=== PATIENT | female | born 1935 | race Caucasian/White ===

== ENCOUNTER 2019-08-07 05:35 | Inpatient (IN) | payer OTHER ==
[2019-08-07] MEDS ORDERED: D50W 25 GM/50 ML SYRINGE/VIAL IV ONE (05:40)
[2019-08-07 06:23] LABS: Absolute Lymphocytes (CBC) 1.1 K/uL (0.7-4.9); Basophils % 0.9 % (0-1.3); Hematocrit 25.5 % (36.0-45.0); Lymphocytes % 13.4 % (15.3-44.8); MPV 8.3 fL (7.6-11.3); RBC Red Blood Cell Count 3.55 M/uL (3.86-4.86)
[2019-08-07 06:33] LABS: Protime INR 1.27
[2019-08-07 06:42] LABS: Potassium 4.3 mmol/L (3.5-5.1)
[2019-08-07] MEDS ORDERED: RSI MEDICATION KIT IV ONE (06:48)
[2019-08-07 06:59] LABS: Albumin 3.2 g/dL (3.4-5.0); Bilirubin Direct 0.2 mg/dL (0-0.2); Bilirubin Total 0.4 mg/dL (0.2-1.0); Magnesium 2.7 mg/dL (1.8-2.4); Protein, Total 8.1 g/dL (6.4-8.2)
[2019-08-07] MEDS ORDERED: PROPOFOL 1,000 MG/100 ML VIAL IV ONE (07:08)
[2019-08-07] MEDS ORDERED: MIDAZOLAM HCL 2 MG/2 ML INJ ONE (07:08)
[2019-08-07 07:12] LABS: Troponin (Emerg Dept Use Only) 0.71 ng/mL (0.0-0.045)
[2019-08-07] MEDS ORDERED: D5 0.9 NS 1,000 ML IV ONE (07:13)
[2019-08-07 07:58] LABS: Blood Gas Oxyhemoglobin 97.6 % (94-97)
[2019-08-07 08:06] LABS: Urine Blood NEGATIVE (NEG); Urine Glucose NEGATIVE (NEG); Urine Protein NEGATIVE (NEG)
[2019-08-07] MEDS ORDERED: ETOMIDATE 20 MG/10 ML VIAL IV ONE (08:18)
[2019-08-07 08:20] LABS: Anisocytosis 2+; Blood Morphology Comment NOTED (NOT SEEN); Hypochromasia 2+; Platelet Estimate ADEQ; Teardrop Cell 1+; Urine White Blood Cell Casts OK
[2019-08-07 08:21] LABS: Elliptocytes 2+
--- NOTE | 2019-08-07 08:21 | ER ---
Nurse's Notes [facility] Name: Rufina Powers Age: 84 yrs Sex: Female : 1935 Arrival Date: 08/07/2019 Time: 05:50 Bed 4 Private MD: Diagnosis: Altered mental status, unspecified;Dehydration;Hypoglycemia, unspecified;Hypothermia Presentation: 08/07 05:35 Presenting complaint: EMS states: PT was found lethargic and the blood sugar was in the jb4 30's. Pt was given oral Glucose at the [facility]. We checked the blood sugar and it was in the 60's. We gave dextrose. 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 05:35 Transition of care: patient was not received from another setting of care. Onset of jb4 symptoms was August 07, 2019. Risk Assessment: Do you want to hurt yourself or someone else? Unable to obtain. Initial Sepsis Screen: Does the patient meet any 2 criteria? Temp <36.0*C (96.8*F)) or > 38.3*C (100.9*F). Altered Mental Status. HR > 90 bpm. Yes Does the patient have a suspected source of infection? No. Patient's initial sepsis screen is negative. If YES to both, name of provider notified: Gareth Quintana MD Care prior to arrival: Medication(s) given: Glucagon. 05:35 Method Of Arrival: EMS: [facility] jb4 05:35 Acuity: DAVIDA 1 jb4 Historical: - Allergies: 06:27 No Known Allergies; jb4 - Home Meds: 07:31 levothyroxine 125 mcg tab 1 tab once daily [Active]; lovastatin 20 mg Oral tab 1 tab iw once daily [Active]; lovastatin 40 mg Oral tab 1 tab nightly [Active]; acetaminophen 325 mg Oral tab every 8 hours [Active]; metformin 500 mg Oral tab 1 tab 2 times per day [Active]; Miralax 17 gram/dose Oral powd once daily [Active]; potassium chloride 20 mEq/15 mL Oral liqd 15 mL once daily [Active]; Protonix 20 mg Oral TbEC 2 times per day [Active]; Xarelto 20 mg oral tab 1 tab once daily [Active]; Zofran (as hydrochloride) 4 mg Oral tab 3 times per day [Active]; Aldactone 25 mg Oral tab 1 tab once daily [Active]; Bumex Oral 1 mg daily [Active]; calcium carbonate 600/400 mg-unit Oral tab twice a day [Active]; digoxin 125 mcg Oral tab 1 tab once daily [Active]; ferrous sulfate 325 mg (65 mg iron) Oral TbEC twice a day [Active]; guaifenesin Oral 20 mL every 4 hours [Active]; Humalog 100 unit/mL Sub-Q soln twice a day [Active]; Imodium A-D 2 mg oral tab as needed [Active]; Lantus 100 unit/mL Sub-Q soln 40 unit daily [Active]; - PMHx: 06:27 Obesity; CHF; cardiac arrhythmias; Hypothyroidism; Diabetes - IDDM; muscle wasting and jb4 atrophy; Atrial Fib; Depression; Hypertension; Dementia; 07:36 Hyperlipidemia; hypokalemia; osteoarthritis; CAD; dysphagia; iw - Immunization history:: Adult Immunizations unknown. - Social history:: Smoking status: unknown. - Ebola Screening: : No symptoms or risks identified at this time. Screenin:45 Abuse screen: Denies threats or abuse. Nutritional screening: No deficits noted. jb4 Tuberculosis screening: No symptoms or risk factors identified. Fall Risk Total [place] Fall Scale indicates No Risk (0-24 pts). 06:00 The patient is not alert, or is unable to follow commands. Bedside swallow screening jb4 discontinued. Patient kept NPO until cleared by Speech Therapy or Physician. The patient failed the bedside swallow screening. The patient will be kept NPO until cleared by Speech Therapy or Physician. Provider notified of bedside swallow screening results: Gareth Quintana MD. Assessment: 05:45 General: Appears distressed, ill, obese, Behavior is unresponsive. Pain: Unable to use jb4 pain scale. Patient is unresponsive. Neuro: Level of Consciousness is unresponsive. Cardiovascular: Skin is cool and pale.. Rhythm is atrial fibrillation. Respiratory: Airway is compromised Respiratory effort is shallow, Respiratory pattern is snoring. GI: No deficits noted. No signs and/or symptoms were reported involving the gastrointestinal system. : No deficits noted. No signs and/or symptoms were reported regarding the genitourinary system. EENT: No deficits noted. No signs and/or symptoms were reported regarding the EENT system. Derm: Skin has lesions on noted to ANASTASIYA arms and legs Skin is dry, Skin is pale, Skin temperature is cool. 06:56 Reassessment: PT intubated with ET tube 23 at the lip. Positive color change on the CO2 jb4 detector. PT sating 100% on ET tube with bagged respirations. 07:10 Reassessment: experimental technician reports inability to obtain 2nd set of blood cultures after aa5 several missed attempts. . 07:10 General: Behavior is intubated and sedated . Pain: Unable to use pain scale. Patient is aa5 intubated. Neuro: Level of Consciousness is intubated and sedated. Unable to follow commands. . left pupil is irregular and sluggishly reactive to light. Right pupil is round and sluggishly reactive to light. . Cardiovascular: Heart tones S1 S2 present Edema 3+ pitting edema noted to bilateral lower extremities. Rhythm is atrial fibrillation. Respiratory: Airway via oral intubation Respiratory effort is even, assisted Respiratory pattern is symmetrical, Breath sounds are coarse bilaterally. GI: Abdomen is obese, Bowel sounds present X 4 quads. Abd is soft X 4 quads. : brief noted. EENT: redness noted to lower eyelids . Derm: Skin is pink, warm \T\ dry. 07:10 Reassessment: Davida hugger warming blanket ongoing. . aa5 07:14 Reassessment: Pt noted to be griping bed rail with left hand and mild movement to left aa5 arm noted, MD was notified. Cough reflex noted upon deep suctioning by RT at this time. . 07:30 : Romano in place to gravity drainage. aa5 08:00 Reassessment: Pt cleaned, soft brown stool noted. Brief applied and clean gown applied aa5 at this time. Davida hugger (warming measure) reapplied. . 08:00 Neuro: Level of Consciousness is Pt is intubated and sedated. . Respiratory: Airway via aa5 oral intubation Respirations are assisted. 08:00 Derm: Skin is pink, warm \T\ dry. aa5 09:00 Neuro: Level of Consciousness is intubated and sedated. . Respiratory: Airway via oral aa5 intubation Respirations are assisted. Derm: Skin is pink, warm \T\ dry. 09:00 Cardiovascular: Rhythm is atrial fibrillation. aa5 09:03 Reassessment: Spoke with Meagan (nurse at [facility]), Meagan states pt's son orion has been notified that patient was sent to this hospital. . 09:57 Reassessment: Pt's son at bedside. Awaiting to speak to Dr. Galindo . aa5 10:00 Neuro: Level of Consciousness is intubated and sedated. . Cardiovascular: Rhythm is aa5 atrial fibrillation. Respiratory: Airway via oral intubation Assisted respirations. Derm: Skin is pink, warm \T\ dry. 10:00 Reassessment: Davida hugger blanket remains in place. . aa5 10:03 Reassessment: Dr. Galindo at bedside speaking to pt's son about POC at this time. . aa5 10:10 Reassessment: Pt noted to be moving arms and legs at this time. Unable to follow aa5 commands. Propofol bolus administered. . 10:13 Reassessment: Pt sedated at this time. . aa5 11:00 Reassessment: Pt noted to be opening eyes and mild movement noted to feet, propofol aa5 bolus administered. . 11:03 Reassessment: Pt sedated at this time. . aa5 11:03 Respiratory: Airway via oral intubation Assisted respirations. aa5 11:03 Derm: Skin is pink, warm \T\ dry. aa5 11:40 Reassessment: Report given to CHADWICK Freeman (ICU). aa5 11:50 Reassessment: Repeat lactate drawn and sent to lab. aa5 11:50 Reassessment: Davida hugger blanket remains in place. . Neuro: Level of Consciousness is aa5 sedated . Cardiovascular: Rhythm is atrial fibrillation. Respiratory: Airway via oral intubation Assisted ventilations. Derm: Skin is pink, warm \T\ dry. 12:00 Reassessment: Upper dentures given to Lydia Rajput RN (ICU). aa5 Vital Signs: 05:47 BP 116 / 53; Pulse 105; Resp 20; Temp 92.1(R); Pulse Ox 97% on 2 lpm NC; Weight 113.4 jb4 kg; Height 5 ft. 8 in. (172.72 cm) (R); 07:11 BP 101 / 59; Pulse 99; Resp 18 A; Pulse Ox 100% on ETT vent; aa5 07:15 BP 125 / 87; Pulse 92; Resp 18 A; Pulse Ox 100% on ETT vent; aa5 07:20 BP 128 / 91; Pulse 92; Resp 16 A; Pulse Ox 100% on ETT vent; aa5 07:30 BP 123 / 75; Pulse 88; Resp 16 A; Pulse Ox 100% on ETT vent; aa5 07:38 BP 95 / 58; Pulse 114; Temp 93.1(C); Pulse Ox 98% on ETT vent; aa5 07:45 BP 95 / 62; Pulse 97; Resp 16 A; Temp 93.7(C); Pulse Ox 100% on ETT vent; aa5 07:50 BP 107 / 95; Pulse 75; Resp 14 A; Temp 93.9(C); Pulse Ox 100% on ETT vent; aa5 07:55 BP 91 / 63; Pulse 71; Resp 14 A; Temp 94.4(C); Pulse Ox 100% on ETT vent; aa5 08:00 BP 97 / 53; Pulse 70; Resp 14 A; Pulse Ox 100% on ETT vent; aa5 08:10 BP 99 / 65; Pulse 80; Resp 16 A; Temp 94.5(C); Pulse Ox 100% on ETT vent; aa5 08:15 BP 85 / 52; Pulse 74; Resp 16 A; Pulse Ox 100% on ETT vent; aa5 08:20 BP 87 / 49; Pulse 73; Resp 16 A; Temp 94.5(C); Pulse Ox 100% on ETT vent; aa5 08:25 BP 88 / 53; Pulse 68; Resp 16 A; Pulse Ox 100% on ETT vent; aa5 08:30 BP 88 / 57; Pulse 73; Resp 14 A; Temp 94.5(C); Pulse Ox 100% on ETT vent; aa5 08:35 BP 99 / 82; Pulse 72; Resp 14 A; Pulse Ox 100% on ETT vent; aa5 08:40 BP 90 / 58; Pulse 70; Resp 14 A; Temp 94.3(C); Pulse Ox 100% on ETT vent; aa5 08:45 BP 110 / 86; Pulse 69; Resp 14 A; Pulse Ox 100% on ETT vent; aa5 08:50 BP 93 / 48; Pulse 75; Resp 14 A; Temp 94.2(C); Pulse Ox 100% on ETT vent; aa5 08:55 BP 80 / 51; Pulse 71; Resp 14 A; Pulse Ox 100% on ETT vent; aa5 09:00 BP 84 / 42; Pulse 71; Resp 14 A; Temp 94.2(C); Pulse Ox 100% on ETT vent; aa5 09:05 BP 76 / 52; Pulse 71; Resp 14 A; Pulse Ox 100% on ETT vent; aa5 09:10 BP 91 / 56; Pulse 71; Resp 14 A; Temp 94.1(C); Pulse Ox 100% on ETT vent; aa5 09:15 BP 83 / 46; Pulse 70; Resp 14 A; Pulse Ox 100% on ETT vent; aa5 09:15 aa5 09:20 BP 87 / 51; Pulse 71; Resp 14 A; Temp 94.1(C); Pulse Ox 100% on ETT vent; aa5 09:23 BP 102 / 60; Pulse 79; Resp 12 A; Pulse Ox 100% on ETT vent; aa5 09:25 BP 95 / 63; Pulse 78; Resp 12 A; Pulse Ox 100% on ETT vent; aa5 09:30 BP 92 / 75; Pulse 74; Resp 12 A; Temp 94.1(C); Pulse Ox 100% on ETT vent; aa5 09:30 aa5 09:35 BP 105 / 62; Pulse 71; Resp 12 A; Pulse Ox 100% on ETT vent; aa5 09:40 BP 96 / 49; Pulse 78; Resp 12 A; Temp 94.3(C); Pulse Ox 100% on ETT vent; aa5 09:50 BP 91 / 66; Pulse 73; Resp 14 A; Pulse Ox 100% on ETT vent; aa5 10:00 aa5 10:00 BP 98 / 72; Pulse 76; Resp 16 A; Temp 94.8(C); Pulse Ox 100% on ETT vent; aa5 10:10 BP 110 / 65; Pulse 92; Resp 16 A; Pulse Ox 100% on ETT vent; aa5 10:15 BP 109 / 64; Pulse 74; Resp 14 A; Temp 94.9(C); Pulse Ox 100% on ETT vent; aa5 10:25 BP 107 / 53; Pulse 82; Resp 14 A; Temp 95.2(C); Pulse Ox 100% on ETT vent; aa5 10:35 BP 106 / 56; Pulse 79; Resp 14 A; Temp 95.4(C); Pulse Ox 100% on ETT vent; aa5 10:45 BP 95 / 59; Pulse 84; Resp 14 A; Temp 95.8(C); Pulse Ox 100% on ETT vent; aa5 11:00 BP 106 / 64; Pulse 81; Resp 14 A; Temp 95.8(C); Pulse Ox 100% on ETT vent; aa5 11:10 BP 103 / 59; Pulse 80; Resp 14 A; Temp 96.0(C); Pulse Ox 100% on ETT vent; aa5 11:20 BP 96 / 51; Pulse 78; Resp 16 A; Temp 96.2(C); Pulse Ox 100% on ETT vent; aa5 11:30 BP 98 / 50; Pulse 82; Resp 16 A; Temp 96.5(C); Pulse Ox 100% on ETT vent; aa5 11:40 BP 98 / 53; Pulse 78; Resp 16 A; Temp 96.5(C); Pulse Ox 100% on ETT vent; aa5 11:50 BP 95 / 52; Pulse 79; Resp 16 A; Temp 96.5(C); Pulse Ox 100% on ETT vent; aa5 12:00 BP 98 / 50; Pulse 82; Resp 16 A; Pulse Ox 100% on ETT vent; aa5 05:47 Body Mass Index 38.01 (113.40 kg, 172.72 cm) jb4 09:15 Dr. Galindo was notified of decreased BP and MAP of 60-61 aa5 09:30 MAP maintaining >65 aa5 10:00 MAP maintaining > 65 aa5 Erika Coma Score: 06:59 Eye Response: none(1). Verbal Response: none(1). Motor Response: none(1). Total: 3. tw4 ED Course: 05:45 Patient has correct armband on for positive identification. Placed in gown. Bed in low jb4 position. Call light in reach. Side rails up X2. monitoring tech on. Pulse ox on. NIBP on. 05:47 Arm band placed on right wrist. jb4 05:50 Patient arrived in ED. jb4 05:53 Triage completed. jb4 05:57 Nohemy Gorman is Primary Nurse. 06:00 Initial lab(s) drawn, by me, sent to lab. EKG done, by ED staff, reviewed by Marilynn MAN. Inserted saline lock: 18 gauge in left antecubital area, using aseptic technique. Blood collected. 06:00 Thermoregulation: Davida blanket applied. jb4 06:02 Marilynn Han FNP-C is PHCP. kb 06:02 Gareth Quintana MD is Attending Physician. kb 06:13 CT Stroke Brain w/o Contrast In Process Unspecified. EDMS 06:58 Gareth Quintana MD is Attending Physician. tw4 07:05 Stroke CXR 1 View In Process Unspecified. EDMS 07:05 Report received from Bebeto Ward RN. aa5 07:10 Attending Physician role handed off by Gareth Quintana MD rn 07:10 Bebeto Galindo MD is Attending Physician. rn 07:30 Assisted provider with central line placement. Set up central line tray. Triple lumen bp line placed in right femoral. Line placed by Bebeto Galindo MD Dressed with Tegaderm, Blood was collected. Patient tolerated well. Before procedure, did Practitioner(s) obtain informed consent? No. Patient \T\ family education about procedure, CLABSI prevention and S/S of infection? No. Time-out/Briefing performed prior to start of procedure? Yes. Was handwashing/sanitizing done immediately prior to procedure? Yes. Was patient positioned to in a way to prevent air embolism? Yes. Was procedure site sterilized? Yes, with chlorhexidine. Was the site allowed to dry? Yes. Was local anesthetic and/or sedation utilized? Yes. During the procedure, did the Practitioner(s) maintain a sterile field? Yes. Were unused ports clamped during insertion? Yes. Was a 2nd qualified MD obtained after 3 unsuccessful insertion attempts? N/A. Was blood aspirated from each lumen? Yes. After the procedure, did the Practitioner(s) clean the site and apply a sterile dressing? Yes. Romano cath inserted, using sterile technique, 18 Fr., by ED staff, balloon inflated, to gravity drainage, urine specimen collected. returned clear yellow urine. Patient tolerated well. 08:19 Conner Clements MD is Hospitalizing Provider. rn 08:22 OG tube inserted, 16 FR, verified placement by auscultating air over stomach and x-ray aa5 ordered. 08:30 One-on-one care X 90 minutes. aa5 09:15 IV discontinued, intact, bleeding controlled, Pressure dressing applied, 18 G to L AC aa5 dc'd, swelling noted to IV site. Administered Medications: 05:55 Drug: D50W 50 ml Route: IVP; Site: right forearm; jb4 06:53 Drug: Etomidate 10 mg {Note: Administered by Kellie, RN.} Route: IVP; Site: left jb4 antecubital; 06:54 Drug: Succinylcholine 100 mg {Note: Administered by Kellie RN.} Route: IVP; Site: left jb4 antecubital; 07:09 Drug: D50W 50 ml Route: IVP; Site: left antecubital; aa5 07:39 Follow up: FSBG increased aa5 07:09 Drug: D5-NS 1000 ml Route: IV; Rate: 100 ml/hr; Site: left antecubital; aa5 09:55 Follow up: VO received to increase to 125ml/hr. Infusion increased per VO aa5 11:50 Follow up: IV Status: Infusion continued upon admission aa5 07:15 Drug: Versed 2 mg Route: IVP; Site: left forearm; bp 07:25 Follow up: Response: No adverse reaction; Patient is sedated aa5 07:30 Drug: Propofol 5 mcg/kg/min Route: IV; Rate: calculated rate; Site: left forearm; bp 07:30 Follow up: Infusion started at 15mcg/kg/min aa5 11:00 Follow up: 20mg bolus administered at 1010 and 20mg bolus administered at 1100 (see aa5 nurse's notes) 11:50 Follow up: IV Status: Infusion continued upon admission aa5 07:44 Not Given (Duplicate Order): Propofol 5 mcg/kg/min IV at calculated rate continuous; bp titrate per protocol (titrate by 5-10mcg/kg/min every 10 min to max rate of 50 mcg/kg/min) 08:20 Drug: NS 0.9% 1000 ml Route: IV; Rate: 1000 ml; Site: right femoral; aa5 08:50 Follow up: Infusion continued to L AC with 200cc left to infuse at 0850 aa5 09:15 Follow up: IV Status: Completed infusion; IV Intake: 1000ml aa5 08:40 Drug: Zosyn 3.375 grams Route: IVPB; Infused Over: 60 mins; Site: right femoral; aa5 08:56 Follow up: Response: No adverse reaction aa5 09:40 Follow up: IV Status: Completed infusion aa5 08:44 CANCELLED (Physician Discretion): NS 0.9% 1000 ml IV at 1000 ml once aa5 08:46 CANCELLED (Physician Discretion): D5-1/2 NS with KCl 20 mEq/L 1000 ml IV at 100 ml/hr aa5 continuous 09:20 Drug: Levophed (4 mg/250 mL D5W 4 mcg/min {Note: started at 5mcg/min per Dr. Galindo VO aa5 .} Route: IV; Rate: calculated rate; Site: right femoral; 11:50 Follow up: IV Status: Infusion continued upon admission aa5 09:42 Drug: LevaQUIN 750 mg Volume: 150 ml; Route: IVPB; Infused Over: 90 mins; Site: right aa5 femoral; 10:01 CANCELLED (Physician Discretion): D50W 50 ml IVP once; (1 amp) aa5 Point of Care Testing: Blood Glucose: 07:09 Blood Glucose: 69 mg/dL; aa5 07:39 Blood Glucose: 103 mg/dL; aa5 08:40 Blood Glucose: 85 mg/dL; aa5 09:55 Blood Glucose: 74 mg/dL; aa5 11:17 Blood Glucose: 93 mg/dL; aa5 07:09 MD notified. aa5 09:55 Dr. Galindo notified of decreased FSBG aa5 Ranges: Intake: 09:15 IV: 1000ml; Total: 1000ml. aa5 Output: 11:00 Urine: 200ml (Romano); Total: 200ml. aa5 Ventilator: 07:34 Fi02: 60%; Rate: 12min; T.V.: 450ml; Peep: 5cm; aa5 07:15 Fi02: 60%; Rate: 12min; T.V.: 450ml; ET tube: 7.5 mm (Oral); aa5 Outcome: 08:20 Decision to Hospitalize by Provider. rn 10:05 Discharge instructions given to Pt's son Instructed on the need for admit, aa5 Demonstrated understanding of instructions. 11:52 Admitted to ICU accompanied by nurse, accompanied by tech, via stretcher, room ICU 6, aa5 with oxygen, on monitor, with chart, Report called to Lydia Rajput RN 11:52 Condition: stable 12:20 Patient left the ED. aa5 Signatures: Dispatcher [employer] EDMS Marilynn Han, TSA SCREENER-C TSA SCREENER-CkJayda Celaya, CHADWICK RN iw Bebeto Galindo MD MD rn Calderon, Audri, RN RN aa5 Bebeto Ward RN RN jb4 Nohemy Gorman Brian, RN RN bp Wadley, Terrence, MD MD tw4 Corrections: (The following items were deleted from the chart) 06:35 05:35 Initial Sepsis Screen: Does the patient meet any 2 criteria? Altered Mental jb4 Status. Does the patient have a suspected source of infection? No. Patient's initial sepsis screen is negative. jb4 06:35 05:35 Care prior to arrival: None. jb4 jb4 07:54 06:56 Reassessment: PT intubated with ET tube 23 at the lip. Positive color change on jb4 the. PT sating 100% on ET tube with bagged respirations. jb4 08:46 08:40 Zosyn 3.375 grams IVPB in Other over 60 mins aa5 aa5 09:47 07:38 BP 95 / 58; Pulse 114bpm; Pulse Ox 98% ET / Ventilator; iw aa5 10:00 07:15 D50W 50 ml IVP in left antecubital bp aa5 10:06 07:15 FiO2 60%, Rate 12 min, T.V. 450 ml, aa5 aa5 12:31 10:00 BP 98 / 72; Pulse 76bpm; Resp 16bpm; Assisted; Pulse Ox 100% ET / Ventilator; aa5 aa5 12:31 10:15 BP 109 / 64; Pulse 74bpm; Resp 14bpm; Assisted; Pulse Ox 100% ET / Ventilator; aa5aa5 12:31 10:25 BP 107 / 53; Pulse 82bpm; Resp 14bpm; Assisted; Pulse Ox 100% ET / Ventilator; aa5aa5 12:31 10:35 BP 106 / 56; Pulse 79bpm; Resp 14bpm; Assisted; Pulse Ox 100% ET / Ventilator; aa5aa5 12: 10:45 BP 95 / 59; Pulse 84bpm; Resp 14bpm; Assisted; Pulse Ox 100% ET / Ventilator; aa5 aa5 12: 11:00 BP 106 / 64; Pulse 81bpm; Resp 14bpm; Assisted; Pulse Ox 100% ET / Ventilator; aa5aa5 12:31 11:10 BP 103 / 59; Pulse 80bpm; Resp 14bpm; Assisted; Pulse Ox 100% ET / Ventilator; aa5aa5 12: 11:20 BP 96 / 51; Pulse 78bpm; Resp 16bpm; Assisted; Pulse Ox 100% ET / Ventilator; aa5 aa5 12:31 11:30 BP 98 / 50; Pulse 82bpm; Resp 16bpm; Assisted; Pulse Ox 100% ET / Ventilator; aa5 aa5 12:31 11:40 BP 98 / 53; Pulse 78bpm; Resp 16bpm; Assisted; Pulse Ox 100% ET / Ventilator; aa5 aa5 12:31 11:50 BP 95 / 52; Pulse 79bpm; Resp 16bpm; Assisted; Pulse Ox 100% ET / Ventilator; aa5 aa5 12:38 07:10 Cardiovascular: Heart tones S1 S2 present Rhythm is atrial fibrillation aa5 aa5
--- NOTE | 2019-08-07 08:21 | EDPHYS ---
Physician Documentation [facility] Name: Rufina Powers Age: 84 yrs Sex: Female : 1935 Arrival Date: 08/07/2019 Time: 05:50 Bed 4 Private MD: ED Physician Bebeto Galindo HPI: 08/07 06:58 This 84 yrs old Female presents to ER via EMS with complaints of Low Blood tw4 Sugar. 06:58 The patient or guardian reports hypoglycemia. Onset: The symptoms/episode tw4 began/occurred today, at an unknown time. Associated signs and symptoms: Pertinent negatives: None. Current symptoms: In the emergency department the patient's symptoms are unchanged from the initial presentation. Unable to obtain HPI due to altered mental status. Historical: - Allergies: 06:27 No Known Allergies; jb4 - Home Meds: 07:31 levothyroxine 125 mcg tab 1 tab once daily [Active]; lovastatin 20 mg Oral tab 1 tab iw once daily [Active]; lovastatin 40 mg Oral tab 1 tab nightly [Active]; acetaminophen 325 mg Oral tab every 8 hours [Active]; metformin 500 mg Oral tab 1 tab 2 times per day [Active]; Miralax 17 gram/dose Oral powd once daily [Active]; potassium chloride 20 mEq/15 mL Oral liqd 15 mL once daily [Active]; Protonix 20 mg Oral TbEC 2 times per day [Active]; Xarelto 20 mg oral tab 1 tab once daily [Active]; Zofran (as hydrochloride) 4 mg Oral tab 3 times per day [Active]; Aldactone 25 mg Oral tab 1 tab once daily [Active]; Bumex Oral 1 mg daily [Active]; calcium carbonate 600/400 mg-unit Oral tab twice a day [Active]; digoxin 125 mcg Oral tab 1 tab once daily [Active]; ferrous sulfate 325 mg (65 mg iron) Oral TbEC twice a day [Active]; guaifenesin Oral 20 mL every 4 hours [Active]; Humalog 100 unit/mL Sub-Q soln twice a day [Active]; Imodium A-D 2 mg oral tab as needed [Active]; Lantus 100 unit/mL Sub-Q soln 40 unit daily [Active]; - PMHx: 06:27 Obesity; CHF; cardiac arrhythmias; Hypothyroidism; Diabetes - IDDM; muscle wasting and jb4 atrophy; Atrial Fib; Depression; Hypertension; Dementia; 07:36 Hyperlipidemia; hypokalemia; osteoarthritis; CAD; dysphagia; iw - Immunization history:: Adult Immunizations unknown. - Social history:: Smoking status: unknown. - Ebola Screening: : No symptoms or risks identified at this time. ROS: 06:58 Constitutional: Negative for fever, chills, and weight loss. tw4 06:58 Unable to obtain ROS due to altered mental status. Exam: 06:59 Constitutional: The patient appears comatose. tw4 06:59 Head/face: Exam is negative for 06:59 Respiratory: the patient does not display signs of respiratory distress, Respirations: normal, Breath sounds: decreased breath sounds, are located in both bases. 06:59 Abdomen/GI: Inspection: abdomen appears normal, Bowel sounds: normal, Palpation: abdomen is soft and non-tender. 06:59 Neuro: Orientation: unable to test, the patient is comatose, Mentation: unable to test, the patient is comatose. 07:06 Musculoskeletal/extremity: Extremities: all appear grossly normal, with no appreciated tw4 pain with palpation, ROM: pt had purposeful movement after D50 administration. Vital Signs: 05:47 BP 116 / 53; Pulse 105; Resp 20; Temp 92.1(R); Pulse Ox 97% on 2 lpm NC; Weight 113.4 jb4 kg; Height 5 ft. 8 in. (172.72 cm) (R); 07:11 BP 101 / 59; Pulse 99; Resp 18 A; Pulse Ox 100% on ETT vent; aa5 07:15 BP 125 / 87; Pulse 92; Resp 18 A; Pulse Ox 100% on ETT vent; aa5 07:20 BP 128 / 91; Pulse 92; Resp 16 A; Pulse Ox 100% on ETT vent; aa5 07:30 BP 123 / 75; Pulse 88; Resp 16 A; Pulse Ox 100% on ETT vent; aa5 07:38 BP 95 / 58; Pulse 114; Temp 93.1(C); Pulse Ox 98% on ETT vent; aa5 07:45 BP 95 / 62; Pulse 97; Resp 16 A; Temp 93.7(C); Pulse Ox 100% on ETT vent; aa5 07:50 BP 107 / 95; Pulse 75; Resp 14 A; Temp 93.9(C); Pulse Ox 100% on ETT vent; aa5 07:55 BP 91 / 63; Pulse 71; Resp 14 A; Temp 94.4(C); Pulse Ox 100% on ETT vent; aa5 08:00 BP 97 / 53; Pulse 70; Resp 14 A; Pulse Ox 100% on ETT vent; aa5 08:10 BP 99 / 65; Pulse 80; Resp 16 A; Temp 94.5(C); Pulse Ox 100% on ETT vent; aa5 08:15 BP 85 / 52; Pulse 74; Resp 16 A; Pulse Ox 100% on ETT vent; aa5 08:20 BP 87 / 49; Pulse 73; Resp 16 A; Temp 94.5(C); Pulse Ox 100% on ETT vent; aa5 08:25 BP 88 / 53; Pulse 68; Resp 16 A; Pulse Ox 100% on ETT vent; aa5 08:30 BP 88 / 57; Pulse 73; Resp 14 A; Temp 94.5(C); Pulse Ox 100% on ETT vent; aa5 08:35 BP 99 / 82; Pulse 72; Resp 14 A; Pulse Ox 100% on ETT vent; aa5 08:40 BP 90 / 58; Pulse 70; Resp 14 A; Temp 94.3(C); Pulse Ox 100% on ETT vent; aa5 08:45 BP 110 / 86; Pulse 69; Resp 14 A; Pulse Ox 100% on ETT vent; aa5 08:50 BP 93 / 48; Pulse 75; Resp 14 A; Temp 94.2(C); Pulse Ox 100% on ETT vent; aa5 08:55 BP 80 / 51; Pulse 71; Resp 14 A; Pulse Ox 100% on ETT vent; aa5 09:00 BP 84 / 42; Pulse 71; Resp 14 A; Temp 94.2(C); Pulse Ox 100% on ETT vent; aa5 09:05 BP 76 / 52; Pulse 71; Resp 14 A; Pulse Ox 100% on ETT vent; aa5 09:10 BP 91 / 56; Pulse 71; Resp 14 A; Temp 94.1(C); Pulse Ox 100% on ETT vent; aa5 09:15 BP 83 / 46; Pulse 70; Resp 14 A; Pulse Ox 100% on ETT vent; aa5 09:15 aa5 09:20 BP 87 / 51; Pulse 71; Resp 14 A; Temp 94.1(C); Pulse Ox 100% on ETT vent; aa5 09:23 BP 102 / 60; Pulse 79; Resp 12 A; Pulse Ox 100% on ETT vent; aa5 09:25 BP 95 / 63; Pulse 78; Resp 12 A; Pulse Ox 100% on ETT vent; aa5 09:30 BP 92 / 75; Pulse 74; Resp 12 A; Temp 94.1(C); Pulse Ox 100% on ETT vent; aa5 09:30 aa5 09:35 BP 105 / 62; Pulse 71; Resp 12 A; Pulse Ox 100% on ETT vent; aa5 09:40 BP 96 / 49; Pulse 78; Resp 12 A; Temp 94.3(C); Pulse Ox 100% on ETT vent; aa5 09:50 BP 91 / 66; Pulse 73; Resp 14 A; Pulse Ox 100% on ETT vent; aa5 10:00 aa5 10:00 BP 98 / 72; Pulse 76; Resp 16 A; Temp 94.8(C); Pulse Ox 100% on ETT vent; aa5 10:10 BP 110 / 65; Pulse 92; Resp 16 A; Pulse Ox 100% on ETT vent; aa5 10:15 BP 109 / 64; Pulse 74; Resp 14 A; Temp 94.9(C); Pulse Ox 100% on ETT vent; aa5 10:25 BP 107 / 53; Pulse 82; Resp 14 A; Temp 95.2(C); Pulse Ox 100% on ETT vent; aa5 10:35 BP 106 / 56; Pulse 79; Resp 14 A; Temp 95.4(C); Pulse Ox 100% on ETT vent; aa5 10:45 BP 95 / 59; Pulse 84; Resp 14 A; Temp 95.8(C); Pulse Ox 100% on ETT vent; aa5 11:00 BP 106 / 64; Pulse 81; Resp 14 A; Temp 95.8(C); Pulse Ox 100% on ETT vent; aa5 11:10 BP 103 / 59; Pulse 80; Resp 14 A; Temp 96.0(C); Pulse Ox 100% on ETT vent; aa5 11:20 BP 96 / 51; Pulse 78; Resp 16 A; Temp 96.2(C); Pulse Ox 100% on ETT vent; aa5 11:30 BP 98 / 50; Pulse 82; Resp 16 A; Temp 96.5(C); Pulse Ox 100% on ETT vent; aa5 11:40 BP 98 / 53; Pulse 78; Resp 16 A; Temp 96.5(C); Pulse Ox 100% on ETT vent; aa5 11:50 BP 95 / 52; Pulse 79; Resp 16 A; Temp 96.5(C); Pulse Ox 100% on ETT vent; aa5 12:00 BP 98 / 50; Pulse 82; Resp 16 A; Pulse Ox 100% on ETT vent; aa5 05:47 Body Mass Index 38.01 (113.40 kg, 172.72 cm) jb4 09:15 Dr. Galindo was notified of decreased BP and MAP of 60-61 aa5 09:30 MAP maintaining >65 aa5 10:00 MAP maintaining > 65 aa5 [place] Coma Score: 06:59 Eye Response: none(1). Verbal Response: none(1). Motor Response: none(1). Total: 3. tw4 Ventilator: 07:34 Fi02: 60%; Rate: 12min; T.V.: 450ml; Peep: 5cm; aa5 07:15 Fi02: 60%; Rate: 12min; T.V.: 450ml; ET tube: 7.5 mm (Oral); aa5 Procedures: 06:58 Intubation: Ventilated with 100% NRB prior to procedure. O2 saturation prior to tw4 procedure was 100 %. Intubated orally using # 4 Rogelio blade with 7.5 mm ETT. was successful on first attempt. Tube secured with tape. 07:38 Central Line: the site was prepped with Betadine, in sterile fashion, a triple lumen rn catheter was inserted, in the right in 1 attempts. placement was verified, by blood return, the site was dressed with Tegaderm, using sterile technique, the patient tolerated the procedure, well. MDM: 06:02 Patient medically screened. kb 06:59 Differential diagnosis: [place]'s syndrome, diabetes insipidus, hypoglycemic episode, tw4 sepsis. Data reviewed: vital signs, nurses notes, EMS record. Data reviewed: radiologic studies, CT scan. 07:38 ED course: Pt signed out to me by Dr. Quintana, apparently presented with rn AMS/unresponsive, hypoglycemic, hypothermic, from senior living. Has done this twice before according to previous medical records, and other times found to be septic. Temp 92, on Davida hugger, central line placed, intubated, prior to my arrival. Sedation started. CXR with pulmonary edema vs RML infiltrate, abx started. . 08:18 Counseling: I had a detailed discussion with the patient and/or guardian regarding: the rn historical points, exam findings, and any diagnostic results supporting the discharge/admit diagnosis, lab results, radiology results, the need for further work-up and treatment in the hospital. Response to treatment: the patient's symptoms have mildly improved after treatment, and as a result, I will admit patient. Admission orders: after a detailed discussion of the patient's condition and case, the admit orders are written by me. ED course: Admitted to Dr. Clements \T\ 0818. 11 05:55 Order name: Basic Metabolic Panel; Complete Time: 06:43 tw4 08/07 05:55 Order name: CBC with Diff; Complete Time: 08:40 tw4 08/07 05:55 Order name: Protime (+inr); Complete Time: 06:43 tw4 08/07 05:55 Order name: Ptt, Activated; Complete Time: 06:43 tw4 08/07 06:08 Order name: LFT's; Complete Time: 07:17 kb 08/07 06:08 Order name: Magnesium; Complete Time: 07:17 kb 08/07 06:08 Order name: NT PRO-BNP; Complete Time: 07:17 kb 08/07 06:08 Order name: Troponin (emerg Dept Use Only); Complete Time: 07:17 kb 08/07 06:25 Order name: Glucose, Ancillary Testing; Complete Time: 06:43 EDMS 08/07 06:32 Order name: Lactate; Complete Time: 08:01 kb 08/07 06:32 Order name: Procalcitonin; Complete Time: 08:14 kb 08/07 06:32 Order name: Blood Culture Adult (2) kb 08/07 06:42 Order name: Urine Culture kb 08/07 06:42 Order name: Urine Microscopic Only; Complete Time: 08:40 kb 08/07 05:55 Order name: CT Stroke Brain w/o Contrast [facility] 08/07 05:55 Order name: Stroke CXR 1 View; Complete Time: 10:02 [facility] 08/07 07:20 Order name: Glucose, Ancillary Testing; Complete Time: 08:01 [facility] 08/07 07:53 Order name: Glucose, Ancillary Testing; Complete Time: 08:01 [facility] 08/07 07:58 Order name: ABG Arterial Blood Gas; Complete Time: 08:01 [facility] 08/07 08:01 Order name: Urine Dipstick--Ancillary (enter results); Complete Time: 08:14 eb 08/07 08:21 Order name: CBC Smear Scan; Complete Time: 08:40 EDMS 08/07 08:26 Order name: Chest Single View XRAY aa5 08/07 08:55 Order name: Glucose, Ancillary Testing; Complete Time: 10:02 [facility] 08/07 09:28 Order name: RAD; Complete Time: 10:02 [facility] 08/07 10:06 Order name: Glucose, Ancillary Testing [facility] 08/07 11:28 Order name: Glucose, Ancillary Testing [facility] 08/07 11:42 Order name: Lactate iw 08/07 05:55 Order name: EKG; Complete Time: 05:56 [facility] 08/07 05:55 Order name: Accucheck; Complete Time: 07:30 [facility] 08/07 05:55 Order name: Cardiac monitoring; Complete Time: 07:30 [facility] 08/07 05:55 Order name: EKG - Nurse/Tech; Complete Time: 06:34 [facility] 08/07 05:55 Order name: IV Saline Lock; Complete Time: 06:34 [facility] 08/07 05:55 Order name: Labs collected and sent; Complete Time: 06:34 [facility] 08/07 05:55 Order name: NPO; Complete Time: 07:30 [facility] 08/07 05:55 Order name: O2 Per Protocol; Complete Time: 06:34 [facility] 08/07 05:55 Order name: O2 Sat Monitoring; Complete Time: 06:34 [facility] 08/07 05:55 Order name: Stroke Swallow Screen; Complete Time: 07:31 [facility] 08/07 06:42 Order name: Urine Dipstick-Ancillary (obtain specimen); Complete Time: 08:45 kb Administered Medications: 05:55 Drug: D50W 50 ml Route: IVP; Site: right forearm; jb4 06:53 Drug: Etomidate 10 mg {Note: Administered by CHADWICK Hopkins.} Route: IVP; Site: left jb4 antecubital; 06:54 Drug: Succinylcholine 100 mg {Note: Administered by CHADWICK Hopkins.} Route: IVP; Site: left jb4 antecubital; 07:09 Drug: D50W 50 ml Route: IVP; Site: left antecubital; aa5 07:39 Follow up: FSBG increased aa5 07:09 Drug: D5-NS 1000 ml Route: IV; Rate: 100 ml/hr; Site: left antecubital; aa5 09:55 Follow up: VO received to increase to 125ml/hr. Infusion increased per VO aa5 11:50 Follow up: IV Status: Infusion continued upon admission aa5 07:15 Drug: Versed 2 mg Route: IVP; Site: left forearm; bp 07:25 Follow up: Response: No adverse reaction; Patient is sedated aa5 07:30 Drug: Propofol 5 mcg/kg/min Route: IV; Rate: calculated rate; Site: left forearm; bp 07:30 Follow up: Infusion started at 15mcg/kg/min aa5 11:00 Follow up: 20mg bolus administered at 1010 and 20mg bolus administered at 1100 (see aa5 nurse's notes) 11:50 Follow up: IV Status: Infusion continued upon admission aa5 07:44 Not Given (Duplicate Order): Propofol 5 mcg/kg/min IV at calculated rate continuous; bp titrate per protocol (titrate by 5-10mcg/kg/min every 10 min to max rate of 50 mcg/kg/min) 08:20 Drug: NS 0.9% 1000 ml Route: IV; Rate: 1000 ml; Site: right femoral; aa5 08:50 Follow up: Infusion continued to L AC with 200cc left to infuse at 0850 aa5 09:15 Follow up: IV Status: Completed infusion; IV Intake: 1000ml aa5 08:40 Drug: Zosyn 3.375 grams Route: IVPB; Infused Over: 60 mins; Site: right femoral; aa5 08:56 Follow up: Response: No adverse reaction aa5 09:40 Follow up: IV Status: Completed infusion aa5 08:44 CANCELLED (Physician Discretion): NS 0.9% 1000 ml IV at 1000 ml once aa5 08:46 CANCELLED (Physician Discretion): D5-1/2 NS with KCl 20 mEq/L 1000 ml IV at 100 ml/hr aa5 continuous 09:20 Drug: Levophed (4 mg/250 mL D5W 4 mcg/min {Note: started at 5mcg/min per Dr. Galindo VO aa5 .} Route: IV; Rate: calculated rate; Site: right femoral; 11:50 Follow up: IV Status: Infusion continued upon admission aa5 09:42 Drug: LevaQUIN 750 mg Volume: 150 ml; Route: IVPB; Infused Over: 90 mins; Site: right aa5 femoral; 10:01 CANCELLED (Physician Discretion): D50W 50 ml IVP once; (1 amp) aa5 Point of Care Testing: Blood Glucose: 07:09 Blood Glucose: 69 mg/dL; aa5 07:39 Blood Glucose: 103 mg/dL; aa5 08:40 Blood Glucose: 85 mg/dL; aa5 09:55 Blood Glucose: 74 mg/dL; aa5 11:17 Blood Glucose: 93 mg/dL; aa5 07:09 MD notified. aa5 09:55 Dr. Galindo notified of decreased FSBG aa5 Ranges: Critical Glucose Levels:Adult <50 mg/dl or >400 mg/dl <40 mg/dl or >180 mg/dl Disposition: 08/07/19 08:20 Hospitalization ordered by Conner Clements for Inpatient Admission. Preliminary diagnosis are Altered mental status, unspecified, Dehydration, Hypoglycemia, unspecified, Hypothermia. - Bed requested for Intensive Care Unit. - Status is Inpatient Admission. aa5 - Condition is Fair. - Problem is new. - Symptoms have improved. UTI on Admission? No Critical care time excluding procedures: 08:18 Critical care time: Bedside Care: 25 minutes, Consultation: 5 minutes. Total time: 30 rn minutes Signatures: Dispatcher [employer] [facility] Marilynn Han, DONOVAN JOSE-Jayda Rasheed RN RN iw Nieto, Roman, MD MD rn Calderon, Audri, RN RN aa5 Bebeto Ward RN RN jb4 Ellis Antonio RN RN bp Gareth Quintana MD MD tw4 Mar Negron Corrections: (The following items were deleted from the chart) 08:44 06:57 NS 0.9% 1000 ml IV at 1000 ml once ordered. kb aa5 08:46 07:12 D5-1/2 NS with KCl 20 mEq/L 1000 ml IV at 100 ml/hr continuous ordered. rn aa5 10:01 07:10 D50W 50 ml IVP once; (1 amp) ordered. rn aa5 10:01 07:46 D50W 50 ml IVP once; (1 amp) given. bp aa5 10:01 10:00 D50W 50 ml IVP once; (1 amp) ordered. aa5 aa5 11:05 08:20 Hospitalization Ordered by Conner Clements MD for Inpatient Admission. Preliminary eb diagnosis is Altered mental status, unspecified; Dehydration; Hypoglycemia, unspecified; Hypothermia. Bed requested for Intensive Care Unit. Status is Inpatient Admission. Condition is Fair. Problem is new. Symptoms have improved. UTI on Admission? No. rn 12:20 11:05 08/07/2019 08:20 Hospitalization Ordered by Conner Clements MD for Inpatient aa5 Admission. Preliminary diagnosis is Altered mental status, unspecified; Dehydration; Hypoglycemia, unspecified; Hypothermia. Bed requested for Intensive Care Unit. Status is Inpatient Admission. Condition is Fair. Problem is new. Symptoms have improved. UTI on Admission? No. eb
[2019-08-07] MEDS ORDERED: PIPER/TAZO/NS 3.375gm 3.375 GM/100 ML BAG ONE (08:30)
[2019-08-07] MEDS ORDERED: Levofloxacin 750mg IV 750 MG/150 ML BAG IV ONE (08:30)
[2019-08-07] MEDS ORDERED: NA CHLORIDE 0.9% 1,000 ML ONE (08:30)
[2019-08-07 08:36] LABS: Urine Amorphous Sediment 2+ /HPF (NONE SEEN); Urine Bacteria <20 /HPF (<20); Urine Culture Reflex Order NOT NEEDED; Urine RBC <5 /HPF (NONE SEEN)
--- NOTE | 2019-08-07 08:45 | RAD REPORT ---
EXAM DESCRIPTION: RAD - Chest Single View - 08/07/2019 7:03 am CLINICAL HISTORY: Transient alteration of awareness, lethargy COMPARISON: March 2012 TECHNIQUE: AP portable chest image was obtained 0621 hours . FINDINGS: Lung volumes are normal. Chest findings are distorted by rotation. Hazy opacification is p resent over the lower right lung field. Right costophrenic angle is blunted. Lung markings are promin ent overall compared to prior study. Heart size is upper normal. No pneumothorax. Right pleural effus ion is present. No acute bony abnormality seen. No acute aortic findings suspected. IMPRESSION: Right pleural effusion is present with right lung base atelectasis. Lung markings and vasculature are overall prominent suggesting failure/ volume overload.
--- NOTE | 2019-08-07 08:45 | EKG ---
Test Date: 2019-08-07 Test Time: 06:11:55 Senior Architect/Design Manager: NATALIYA MEASUREMENT RESULTS: Intervals: Rate: 104 FL: QRSD: 108 QT: 352 QTc: 462 [place]: P: FL: QRS: -51 T: 127 INTERPRETIVE STATEMENTS: Undetermined rhythm Left axis deviation Septal infarct, age undetermined Abnormal ECG Compared to ECG 04/03/2012 09:06:28 Myocardial infarct finding now present Atrial fibrillation no longer present T-wave abnormality no longer present Electronically Signed On 08-07-19 08:45:05 RECREATION CLERK by Abdirizak Moreno
[2019-08-07] MEDS ORDERED: NOREPINEPHRINE 4mg/D5W 250mL 4 MG/250 ML BAG IV ONE (09:15)
--- NOTE | 2019-08-07 09:23 | RAD REPORT ---
EXAM DESCRIPTION: RAD - Chest Single View - 08/07/2019 9:02 am CLINICAL HISTORY: OG tube placement COMPARISON: None. TECHNIQUE: AP portable chest image was obtained spanning midchest to upper pelvis . FINDINGS: OG tube is in place. Respiratory motion artifact limits definitive assessment of the tip. Tip is seen to extend well below the diaphragm. No suspicious finding in the lower chest or upper abdomen. Prominent degenerative change with left co nvex rotoscoliosis noted in the spine. IMPRESSION: OG tube placement in good position.
--- NOTE | 2019-08-07 09:45 | RAD REPORT ---
EXAM DESCRIPTION: CT - Ct Stroke Brain Wo Cont - 08/07/2019 8:17 am COMPARISON: None available TECHNIQUE: Axial CT of the head obtained from the skull apex to the skull base without contrast. FINDINGS: No acute intracranial hemorrhage identified. No mass, mass effect, shift of the midline, a bnormal extra-axial fluid collection or CT evidence of acute ischemic change identified. The ventricu lar system and sulcal spaces are mildly enlarged compatible with mild cerebral atrophy. Scattered a reas of hypodensity throughout the supratentorial white matter are nonspecific and may be related to chronic small vessel ischemic change. Polypoid mucosal thickening of the right maxillary sinus. Mastoid air cells are well aerated. No sk ull fracture identified. Visualized orbits and globes are unremarkable. Atherosclerotic calcificati on of the intracranial internal carotid arteries. IMPRESSION: 1. No acute intracranial abnormality by CT criteria. Urgent finding reported to Dr. BERTHA REGAN at 08/07/2019 6:18 AM COMPLIANCE TESTER This exam was performed according to our departmental dose-optimization program, which includes autom ated exposure control, adjustment of the mA and/or kV according to patient size and/or use of iterati ve reconstruction technique. Electronically signed by: Gama Hernandez 08/07/2019 6:20 AM COMPLIANCE TESTER Due to temporary technical issues with the PACS/Fluency reporting system, reports are being signed by the in house radiologist as a courtesy to ensure prompt reporting. The interpreting radiologist is f ully responsible for the content of the report.
[2019-08-07] MEDS ORDERED: NOREPINEPHRINE 4 MG in D5W 250 ML IV PRN (10:02)
[2019-08-07] MEDS ORDERED: ALBUTEROL 2.5 MG/3 ML NEB SOL NEB PRN ×2 (12:26→15:00)
[2019-08-07] MEDS ORDERED: NA CHLORIDE 0.9% 250 ML IV PRN (12:26)
[2019-08-07] MEDS ORDERED: ONDANSETRON 4 MG/2 ML VIAL IV PRN (12:26)
[2019-08-07] MEDS ORDERED: PROPOFOL 1,000 MG/100 ML VIAL IV PRN (12:26)
[2019-08-07] MEDS ORDERED: D5 0.45 NS 1,000 ML IV SCH (12:26)
[2019-08-07] MEDS ORDERED: HALOPERIDOL LACT 5 MG/ML INJ IV PRN (12:26)
[2019-08-07] MEDS: DEXTROSE 10%-WATER 500 ML IV SCH ×2 (14:11→21:14)
--- NOTE | 2019-08-07 16:03 | ECHO ---
HEIGHT: 5 ft 8 in WEIGHT: 272 lb 0 oz DATE OF STUDY: 08/07/[address]: Conner Clements MD 2-DIMENSIONAL: YES M.MODE: YES DOPPLER: YES COLOR FLOW: YES TDS: NO PORTABLE: YES DEFINITY: NO BUBBLE STUDY: NO DIAGNOSIS: CONGESTIVE HEART FAILURE CARDIAC HISTORY: CATHERIZATION: NO SURGERY: NO PROSTHETIC VALVE: NO PACEMAKER: NO MEASUREMENTS (cm) DIASTOLIC (NORMALS) SYSTOLIC (NORMALS) IVSd 1.1 (0.6-1.2) LA Diam 4.3 (1.9-4.0) LVEF 32% LVIDd 5.2 (3.5-5.7) LVIDs 4.4 (2.0-3.5) %FS 15% LVPWd 0.9 (0.6-1.2) Ao Diam 2.6 (2.0-3.7) 2 DIMENSIONAL ASSESSMENT: RIGHT ATRIUM: NORMAL LEFT ATRIUM: DILATED RIGHT VENTRICLE: NORMAL LEFT VENTRICLE: NORMAL SIZE TRICUSPID VALVE: NORMAL MITRAL VALVE: MITRAL ANNULAR CALCIFICATION PULMONIC VALVE: NORMAL AORTIC VALVE: NORMAL PERICARDIAL EFFUSION: NONE AORTIC ROOT: NORMAL LEFT VENTRICULAR WALL MOTION: SEVERE GLOBAL HYPOKINESIS. DOPPLER/COLOR FLOW: MILD TRICUSPID REGURGITATION NORMAL RIGHT VENTRICULAR SYSTOLIC PRESSURE. COMMENTS: SEVERE GLOBAL HYPOKINESIS. EJECTION FRACTION 30-35%. LEFT ATRIAL ENLARGEMENT. MITRAL ANNULAR CALCIFICATION. MILD TRICUSPID REGURGITATION NORMAL RIGHT VENTRICULAR SYSTOLIC PRESSURE. TECHNOLOGIST: SARAH BETH SILVERMAN
[2019-08-07] MEDS ORDERED: Pharmacy Consult 1 EA XX PRN (16:35)
--- NOTE | 2019-08-07 16:35 | P.CNS ---
Date of Consult: 08/07/19 Chief Complaint: Respiratory failure hypoglycemia History of Present Illness: Patient is 84 years of age admitted with severe hypoglycemia altered mental status was intubated she was also hypotensive given some IV fluids transferred here to the ICU currently patient is unresponsive on a ventilator vital signs stable on a Levophed drip Allergies No Known Allergies Allergy (Unverified 04/03/12 09:02) Home Medications: Calcium Carb/Vit D3/Minerals [Caltrate Plus Tablet] 1 each PO BIDWM 04/04/12 Digoxin [Digox] 125 mcg PO DAILY 04/04/12 Levothyroxine [Synthroid] 125 mcg PO ACB 04/04/12 Lovastatin 60 mg PO BEDTIME 04/04/12 Potassium Chloride [Klor-Con M20] 20 meq PO BID 04/04/12 Ferrous Sulfate [Feosol] 325 mg PO BID 08/07/19 Guaifenesin/Dextromethorphan [Guaifenesin Dm Syrup] 20 ml PO Q4H PRN 08/07/19 Insulin Glargine Human [Lantus] 40 unit SQ DAILY 08/07/19 Insulin Lispro [Humalog] See Protocol SQ ACHS 08/07/19 Loperamide HCl [Imodium A-D] 2 mg PO Q4H PRN MDD 8 08/07/19 Ondansetron [Zofran] 4 mg PO Q8H PRN 08/07/19 Pantoprazole Sodium [Protonix] 20 mg PO BID 08/07/19 Polyethylene Glycol 3350 [Miralax] 17 gm PO DAILY PRN 08/07/19 Rivaroxaban [Xarelto] 20 mg PO DAILY 08/07/19 Spironolactone [Aldactone*] 1 tab PO DAILY 08/07/19 - Past Medical/Surgical History Diabetic: Yes -: obesity -: a fib -: hypothyroid -: hyperlipidemia -: osteoarthritis -: HTN -: depression -: CAD -: dysphagia - Social History Smoking Status: Unknown if ever smoked Alcohol use: No CD- Drugs: No Place of Residence: [facility] Review of Systems is unable to be obtained Physical Examination Temp Pulse Resp BP Pulse Ox 94.3 F L 80 11 L 117/67 100 08/07/19 09:40 08/07/19 13:00 08/07/19 13:00 08/07/19 13:00 08/07/19 13:00 General: Unresponsive Neck: Supple Respiratory: Clear to auscultation bilaterally, Diminished Cardiovascular: Edema Gastrointestinal: Normal bowel sounds, Soft and benign Laboratory Data (last 24 hrs) 08/07/19 05:55: Magnesium 2.7 H, Total Bilirubin 0.4, AST 54 H, ALT 40, Alkaline Phosphatase 74 08/07/19 05:55: PT 14.8 H, INR 1.27, APTT 31.4 08/07/19 05:55: WBC 7.9, Hgb 7.8 L*, Hct 25.5 L, Plt Count 365 08/07/19 05:55: Sodium 137, Potassium 4.3, BUN 65 H, Creatinine 1.72 H, Glucose 182 H - Problems (1) Respiratory failure Current Visit: Yes Status: Acute Plan: Patient is 84 years of age admitted with severe hypoglycemia respiratory failure microcytic anemia hypotension shock renal insufficiency history of consist severe global hypokinesis pro calcitonin level is negative rule out sepsis chest x-ray abnormal possible volume overload pleural effusion wean off Levophed wean off propofol add vancomycin check serum TSH cortisol level stress doses of hydrocortisone
[2019-08-07] MEDS ORDERED: RIVAROXABAN 20 MG TABLET PO SCH (17:00)
[2019-08-07] MEDS: PIPER/TAZO/NS 3.375gm 3.375 GM/100 ML BAG IVPB SCH (17:17)
[2019-08-07] MEDS: HYDROCORTISONE SUC 100 MG INJ IV SCH (17:23)
[2019-08-07] MEDS: WATER FOR INJ,STERILE 10 ML ONE (17:26)
[2019-08-07] MEDS: FAMOTIDINE 20 MG/2 ML VIAL IV SCH (19:28)
[2019-08-07] MEDS: VANCOMYCIN 2 GM in NA CHLORIDE 0.9% 500 ML IVPB SCH (19:29)
[2019-08-07] MEDS: ATORVASTATIN 20 MG TAB PO SCH (20:07)
[2019-08-07] MEDS: FERROUS SULFATE 325 MG TAB PO SCH (20:07)
--- NOTE | 2019-08-07 20:52 | CON ---
Date of Consultation: 08/07/2019 Admitted on 08/07/2019, by Dr. Clements. Reason For Consultation: Elevated troponin. History Of Present Illness: Ms. Wilson is an 84-year-old woman who remains full code. She came in basically initially with complaints of low blood sugar and altered mental status, had to be intubated . She was noted to have elevated troponin and I was consulted. She has a history of congestive hear t failure, obesity, atrial fibrillation, diabetes, hypothyroidism, muscle wasting, atrophy disease, d epression, hypertension, and dementia. She also has a history of dyslipidemia, osteoarthritis, coron martin artery disease, dysphagia, as well as hypokalemia. She remains full code. There were no reports of chest pain. As stated earlier the patient was on 100% mechanical ventilation. Past Medical History: As stated above. Allergies: NONE. Review of Systems: Not obtainable. Social History: Not obtainable. Family History: Not obtainable. Medications: Medications at home supposed to be lovastatin, calcium, digoxin, iron, insulin, Synthro id, Protonix, Xarelto, Aldactone as well as potassium. Physical Examination: General: She was intubated. Vital Signs: Blood pressure is 117/67. Her pulse was sinus with a heart rate of 80. She was afebri le on 100% mechanical ventilation. She had a pO2 of 398, pCO2 of 36, pH of 7.36. HEENT: Negative. Neck: Supple, no bruit. CHEST: Reveals some crackles both bases. Cardiac: Revealed a regular rhythm and rate with an aortic sclerosis, murmur. No gallops or rubs. Abdomen: Obese, but benign. Extremities: Revealed 1+ edema. Skin: Dry and intact. Diagnostic Data: Creatinine is 1.72, hemoglobin was 7.8, INR is 1.27, glucose was 185. Her troponin of 0.71. Her BNP was 11,603. Chest x-ray was fairly unremarkable except for a right pleural effusi on with right lung base atelectasis. There were some suggestion of volume overload. Her EKG showed sinus rhythm with PACs. CT of her head showed no acute intracranial abnormalities. Impression And Plan: 1.Altered mental status with hypoglycemia initially, respiratory failure status post intubation, pos sibly secondary to acute on chronic congestive heart failure, probably systolic. Echocardiogram is p ending. I agree with the present regimen. 2.Pleural effusion and lung atelectasis at the right base. 3.Obesity. 4.History of atrial fibrillation, on Xarelto. 5.Hypothyroidism. 6.Diabetes. 7.Depression. 8.History of hypertension. 9.History of dementia. 10.History of hyperlipidemia. 11.History of hypokalemia. 12.Osteoarthritis. 13.History of coronary artery disease. 14.History of dysphagia. We will continue following Ms. Wilson. We will see what her echocardiogram showed. Definitely no p tamara for any invasive studies at this point. NB/MODL Voice ID: [id number] Report ID: [id number]
[2019-08-07] MEDS ORDERED: LOVASTATIN 60 MG PO SCH (21:00)
[2019-08-08] MEDS: PIPER/TAZO/NS 3.375gm 3.375 GM/100 ML BAG IVPB SCH ×3 (00:30→17:59)
--- NOTE | 2019-08-08 01:29 | HP ---
Date of Admission: 08/07/2019 Code Status: Full. Chief Complaint: Hypoglycemia, altered mental status. Primary Care Physician: At the nursing facility. History Of Present Illness: History obtained from previous records, ER staff and physician. No family at bedside. The patient is an 84-year-old female with past medical history of diabetes mellitus type 2, insulin requiring; congestive heart failure; coronary artery disease; arthritis; atrial fibrillation, on Xarelto; gastroesophageal reflux disease; hyperthyroidism; hyperlipidemia, who is a resident of nursing facility in her usual state of health until night prior to admission when the patient was found to be less responsive, found to be hypoglycemic with blood sugars in the 20s to 30s. She was given D50 en route via EMS. Blood sugar improved, however, dropped again in the hospital setting. Was started on D5 NS. Due to persistent hypoglycemia, patient was referred for admission. Her head CT scan did not show any acute changes. She did have elevated lactate level at 2.4. Her creatinine was elevated at 1.72, which is above her baseline. Procalcitonin was normal. Her hemoglobin was 7.8. Chest x-ray was done after OG tube placement. Otherwise, did show a right pleural effusion with right lung base atelectasis, lung markings in vasculature overall prominence suggesting failure or volume overload. When seen in the ER, she was intubated and sedated. No family at the bedside. Past Medical History: Congestive heart failure, hyperlipidemia, hypothyroidism , GERD, atrial fibrillation, arthritis, diabetes, [place], coronary artery disease, hypertension. Allergies: NO KNOWN DRUG ALLERGIES. Medications: List reviewed. Family History: No coronary artery disease in the family. Social History: Patient used to smoke, quit over 25 years ago. No history of alcohol use. Currently a resident of nursing facility. Review of Systems: Ten-point system reviewed, negative except as per HPI. Physical Examination: Vital Signs: Temperature 92.1, heart rate 105, blood pressure 116/53, respirations 20, O2 97% on 2 L via nasal cannula. General: Intubated, sedated. Does move all 4 extremities. Does not open eyes. Ill-appearing, morbidly obese, elderly female. HEENT: Normocephalic, atraumatic. Pupils equal, round, and reactive to light. ET tube in place. Neck: Supple. No JVD. Trachea midline. CV: S1, S2. Sinus tachycardia. Peripheral pulses weak. Respiratory: Diminished breath sounds, right worse than left. No wheezing or stridor. Patient is in no use of accessory muscles. Gastrointestinal: Abdomen is soft, nontender, nondistended. Positive bowel sounds. No guarding or rigidity. Extremities: No clubbing, cyanosis. Patient does have pedal edema. No calf swelling. Neuro: Unable to properly assess cranial nerves due to the patient being intubated. She is also sedated. Does move all 4 extremities. Babinski is upgoing. Skin: No rashes. Normal skin turgor. Laboratory Data: WBC 7.9, H and H 7.8 and 25.5, MCV 71.8 and MCH 21.9, platelets 365, neutrophils 73%. INR 1.27. ABG; pH 7.36, pCO2 46.8, PO2 39.8, bicarb 25. Sodium 137, potassium 4.3, chloride 102, CO2 29, BUN 65, creatinine 1.72, glucose 182, lactate 2.4, repeat lactate is 1.3, calcium 8.3, magnesium 2.7, AST 54, ALT 40, troponin 0.71. BNP is 11,603. Albumin 3.2. Procalcitonin 0.7. UA, negative nitrite, trace leukocyte esterase, 5 to 10 WBCs , less than 20 bacteria. Imaging Studies: CT scan of the brain shows no acute intracranial abnormality. Chest x-ray shows right pleural effusion present with right lung base atelectasis, lung markings and vasculature overall prominent suggesting failure of volume overload. EKG shows rate of 104, left axis deviation, septal infarct , age undetermined. Assessment: An 84-year-old female with: 1. Acute respiratory failure with hypoxia and hypercapnia. Patient is intubated. We will continue on mechanical ventilation. Dr. Griggs has been consulted with Pulmonology for ventilator management, likely secondary to volume overload and pleural effusion. 2. Persistent hypoglycemia, not responding to D50. The patient has been on D5 NS, however, still somewhat hypoglycemic. We will switch over to D5W at 75 mL/h, as the patient is volume overloaded. We will continue to monitor blood glucose levels every hour. Hold all anti-hypoglycemics including Lantus, metformin. 3. Elevated troponin level, possible non-ST elevation myocardial infarction. We will check echocardiogram. Dr. Moreno with Cardiology has been consulted. 4. Acute metabolic encephalopathy. Head CT negative. Likely related to hypoglycemia 5. Microcytic hyperchromic anemia, likely anemia of chronic disease. We will check anemia panel. Patient is on Xarelto. We will monitor H and H and transfuse as needed. 5. Coronary artery disease, [place] artery and [place] heart without angina. 6. Diabetes mellitus type 2, insulin requiring. Currently with hypoglycemia. We will continue to monitor blood glucose levels. We will avoid any hypoglycemics at this point. 7. Generalized arthritis, stable. 8. History of atrial fibrillation, paroxysmal. 9. Essential hypertension, currently hypotensive. We will start on vasopressors for hypotensive shock. 10. Congestive heart failure, acute on chronic, known EF, likely diastolic dysfunction. We will continue with monitoring I's and O's, free fluid restriction. Patient is on IV fluids due to hypoglycemia. We will monitor closely. 11. Mixed hyperlipidemia. Continue statin. 12. Hypothyroidism. Synthroid. 13. Gastroesophageal reflux disease. We will continue on IV PPI. 14. On chronic anticoagulation with Xarelto for atrial fibrillation. 15. Deep vein thrombosis prophylaxis. Patient is on Xarelto. 16. Morbid obesity. BMI 41. Plan: Admit patient to ICU, place as inpatient, length of stay greater than 2 midnights. /MARIELA Voice ID: [id number] MTDD
[2019-08-08] MEDS: DEXTROSE 10%-WATER 500 ML IV SCH (04:15)
[2019-08-08 05:09] LABS: Absolute Lymphocytes (CBC) 0.7 K/uL (0.7-4.9); Basophils % 0.2 % (0-1.3); Hematocrit 22.6 % (36.0-45.0); Lymphocytes % 15.4 % (15.3-44.8); MPV 8.1 fL (7.6-11.3); RBC Red Blood Cell Count 3.17 M/uL (3.86-4.86)
[2019-08-08 05:38] LABS: Ferritin 13.4 ng/mL (8-388); Potassium 4.3 mmol/L (3.5-5.1)
[2019-08-08] MEDS: LEVOTHYROXINE SOD 0.125 MG TAB PO SCH (06:38)
--- NOTE | 2019-08-08 07:51 | RAD REPORT ---
EXAM DESCRIPTION: RAD - Chest Single View - 08/08/2019 6:52 am CLINICAL HISTORY: Intubation, respiratory failure COMPARISON: August 07 TECHNIQUE: AP portable chest image was obtained 0626 hours . FINDINGS: Endotracheal tube is in place with the tip 1 centimeter above the jaspal. NG tube extends below the diaphragm, off the field of view. Heart size remains prominent but stable. Vasculature has decreased in prominence. Overall interstitial pattern has improved. Right base hazy opacification als o improved. No pneumothorax. No acute bony abnormality seen. No acute aortic findings suspected. IMPRESSION: Partial clearing of pleural and parenchymal opacification since prior imaging. Endotracheal tube tip is 1 centimeter above the jaspal.
[2019-08-08] MEDS: FERROUS SULFATE 325 MG TAB PO SCH ×2 (08:38→20:46)
[2019-08-08] MEDS ORDERED: WATER FOR INJ,STERILE 10 ML ONE (08:38)
[2019-08-08] MEDS: HYDROCORTISONE SUC 100 MG INJ IV SCH (08:38)
[2019-08-08] MEDS: DIGOXIN 0.125 MG TABLET PO SCH (08:38)
[2019-08-08] MEDS: FAMOTIDINE 20 MG/2 ML VIAL IV SCH (08:39)
[2019-08-08] MEDS: WATER FOR INJ,STERILE 10 ML ONE (08:39)
[2019-08-08] MEDS: FENTANYL CITR 100 MCG/2 ML IV PRN ×3 (08:39→21:21)
[2019-08-08] MEDS: D5 0.45 NS 1,000 ML IV SCH ×2 (08:41→22:20)
[2019-08-08] MEDS ORDERED: NA CHLORIDE 0.9% 50 ML ONE (10:47)
--- NOTE | 2019-08-08 11:32 | P.PN ---
Subjective Date of Service: 08/08/19 Chief Complaint: Respiratory failure anemia Patient's condition is stable she has been weaned off vasopressors our as been a significant decline in her hemoglobin associated with suctioning of bloody sputum patient was on anticoagulants Review of Systems is unable to be obtained Physical Examination - Vital Signs Temperature: 97.8 F Blood Pressure: 92/43 Pulse: 86 Respirations: 15 Pulse Ox (%): 100 - Physical Exam General: Alert, Moderate distress Respiratory: Clear to auscultation bilaterally, Crackles/rales Cardiovascular: No edema, Irregular heart rate/rhythm Gastrointestinal: Normal bowel sounds, Soft and benign Assessment & Plan - Problems (Diagnosis) (1) Respiratory failure Current Visit: Yes Status: Acute Plan: Patient admitted with hypoglycemia respiratory failure now anemic significant drop in her hemoglobin chest x-ray still shows some haziness in the right lower zone transfuse with red blood cell renal function has improved hypoglycemia corrected Dc steroid cortisol level is satisfactory blood cultures positive id pending continue with Zosyn and vancomycin once she is transfuse will consider weaning off from the ventilator TSH level is satisfactory hypoxic hypercapnic respiratory failure possible pneumonia in the right lower lobe anticoagulants Dc Qualifiers: Respiratory failure complication: hypoxia and hypercapnia
--- NOTE | 2019-08-08 15:12 | PN ---
Date of Progress Note: 08/08/2019 Subjective: Patient seen and examined, chart reviewed and case discussed with RN and Dr. Griggs. The patient is more awake and alert today, being weaned off the ventilator. Medications list reviewed. Physical Examination: Vital Signs: Temperature 97.8, heart rate 80, blood pressure 104/52, respirations 14, O2 100% on 30% FiO2 via ET tube. General: Awake, alert, follows some commands. Moves all 4 extremities. Morbidly obese, ill-appearing female. CV: S1, S2. Irregularly irregular rhythm. Peripheral pulses weak. Respiratory: Diminished breath sounds. Rhonchi present. No wheezing or stridor. Gastrointestinal: Abdomen is soft, nondistended. Positive bowel sounds. Nontender. Extremities: No clubbing, cyanosis. Pedal edema is present. Neuro: Moves all 4 extremities. Awake, alert, follows some commands. Opens eyes to name. Laboratory Data: Sodium 140, potassium 4.3, chloride 104, CO2 of 27, BUN 51, creatinine 1.39, glucose 187, calcium 8. Iron 17, TIBC 321, transferrin 272, transferrin saturation is 4.5, ferritin is 13.4, triglycerides 66, cholesterol 77, LDL 24, HDL 40. WBC 4.7, H and H 6.8 and 22.6, platelets 286, neutrophils 74.4%. Blood culture preliminary report shows gram-positive cocci in clusters. Urine culture shows mixed sylvia. Chest x-ray shows improvement from yesterday , partial clearing of pleural and parenchymal opacification since prior imaging. ET tube in place 1 cm above the jaspal. Echocardiogram shows EF of 32 %, severe global hypokinesis, left atrial enlargement, mitral annular calcification, mild tricuspid regurg, normal right ventricular systolic pressure. Assessment: An 84-year-old female with. 1. Acute respiratory failure with hypoxia and hypercapnia, improving. Patient is being weaned off ventilator, more awake and alert. Appreciate Pulmonology input, likely secondary to volume overload from systolic heart failure and pleural effusion. 2. Acute metabolic encephalopathy, likely related to above. Head CT scan was negative. More awake. Following some commands. 3. Persistent hypoglycemia. Patient was given Solu-Cortef and was on D10W. Blood sugar levels now in the 150s to 160s. We will switch back to D5 half NS. Hold hyperglycemics for now. She is on metformin and Lantus. 4. Elevated troponin level. Echocardiogram shows severe global hypokinesis. EF of 32%. Appreciate Cardiology input. No invasive measurements recommended by Cardiology at this point. 5. Hemoptysis. Patient having fresh blood from the ET tube. We will obtain CT chest, abdomen, and pelvis. Hold Xarelto. 6. Microcytic hypochromic anemia on top of acute blood loss anemia. Patient is severely iron deficient as well. We will continue iron supplements. We will hold Xarelto. We will transfuse 1 unit of PRBCs with 20 mg of Lasix afterwards. 7. Coronary artery disease, chilkat artery and chilkat heart without angina, stable. 8. Diabetes mellitus type 2, insulin requiring, currently with hyperglycemia. We will continue to monitor blood glucose levels q.1 hour. Hold Lantus. 9. Generalized arthritis, stable. 10. History of atrial fibrillation, paroxysmal. Xarelto on hold due to anemia and hemoptysis. 11. Essential hypertension, currently hypotensive, was on vasopressors for hypotensive shock, now has been weaned off. Blood pressure is improving. 12. Congestive heart failure, acute on chronic, secondary to systolic dysfunction. We will monitor I's and O's and restrict free fluids. Currently on IV fluids due to hyperglycemia. We will continue to monitor closely. Chest x-ray shows improvement. 13. Mixed hyperlipidemia. We will continue statin. 14. Hypothyroidism. Synthroid. 15. Gastroesophageal reflux disease without esophagitis. Continue IV PPI. 16. Morbid obesity. BMI 41. 17. Deep venous thrombosis prophylaxis. Hold chemical anticoagulation due to hemoptysis and anemia. Plan: Continue monitoring in ICU setting, overall guarded prognosis. We will update family. ADDENDUM: Spoke to pts son. Patient has had GI bleed recently and was seen by GI outpt. She is not a candidate for colonoscopy due to her comorbid conditions and her pulmonary function making anesthesia risky. She is set up for a barium enema as oupt in early August. Spoke with her GI Dr. García. Recommends out patient follow up. /MARIELA Voice ID: [id number] Report ID: [id number] MAYANK
[2019-08-08] MEDS: MIDAZOLAM HCL 2 MG/2 ML INJ IV PRN (15:41)
--- NOTE | 2019-08-08 15:42 | RAD REPORT ---
EXAM DESCRIPTION: CT - CT CHEST,ABD,PELVIS W/O - 08/08/2019 3:16 pm CLINICAL HISTORY: SOB, hemoptysis/abdominal pain COMPARISON: None. TECHNIQUE: Unenhanced computed axial tomography of the chest, abdomen and pelvis obtained. Oral cont rast not requested Evaluation of solid organs, vessels, mediastinum and michele and bowel is limited secondary to the lack of contrast administration All CT scans are performed using dose optimization technique as appropriate and may include automated exposure control or mA/KV adjustment according to patient size. FINDINGS: Endotracheal tube has tip well above the jaspal Small to moderate right pleural effusion with right lower lobe atelectasis Small left pleural effusion. Remainder of the lungs are clear. No mediastinal or hilar lymphadenopathy Coronary arterial calcifications Nasogastric tube in the proximal stomach The liver, spleen, pancreas, adrenals and kidneys appear grossly normal Small amount of ascites Romano catheter within the bladder. The rectum is distended with stool measuring 9.4 centimeters. There is no evidence of diverticulitis. Diffuse edema is present throughout the subcutaneous tissues Vascular calcifications IMPRESSION: Small to moderate right pleural effusion with right lower lobe atelectasis Rectum is distended with stool measuring 9.4 centimeters Anasarca
[2019-08-08 17:30] LABS: Hematocrit 26.8 % (36.0-45.0)
[2019-08-08] MEDS: ATORVASTATIN 20 MG TAB PO SCH (20:46)
[2019-08-09] MEDS: PIPER/TAZO/NS 3.375gm 3.375 GM/100 ML BAG IVPB SCH ×3 (00:25→17:29)
[2019-08-09] MEDS: MIDAZOLAM HCL 2 MG/2 ML INJ IV PRN ×2 (01:15→11:00)
[2019-08-09 05:16] LABS: Absolute Lymphocytes (CBC) 1.6 K/uL (0.7-4.9); Basophils % 0.6 % (0-1.3); Hematocrit 27.3 % (36.0-45.0); Lymphocytes % 26.9 % (15.3-44.8); MPV 8.1 fL (7.6-11.3); RBC Red Blood Cell Count 3.72 M/uL (3.86-4.86)
[2019-08-09 05:22] LABS: Albumin 2.6 g/dL (3.4-5.0); Bilirubin Total 0.8 mg/dL (0.2-1.0); Protein, Total 6.8 g/dL (6.4-8.2)
[2019-08-09] MEDS: FENTANYL CITR 100 MCG/2 ML IV PRN (05:55)
[2019-08-09] MEDS: LEVOTHYROXINE SOD 0.125 MG TAB PO SCH (06:01)
[2019-08-09] MEDS: VANCOMYCIN 2 GM in NA CHLORIDE 0.9% 500 ML IVPB SCH (06:01)
[2019-08-09] MEDS: DIGOXIN 0.125 MG TABLET PO SCH (08:11)
[2019-08-09] MEDS: FAMOTIDINE 20 MG/2 ML VIAL IV SCH (08:11)
[2019-08-09] MEDS: FERROUS SULFATE 325 MG TAB PO SCH (08:12)
[2019-08-09] MEDS: THIAMINE 200 MG/2 ML INJ IVP SCH (08:44)
[2019-08-09] MEDS: METHYLPREDNISOLONE 40 MG INJ IV SCH ×2 (08:44→21:35)
--- NOTE | 2019-08-09 10:35 | RAD REPORT ---
EXAM DESCRIPTION: RAD - Chest Single View - 08/09/2019 10:19 am CLINICAL HISTORY: Resp. Distress Chest pain. COMPARISON: Chest Single View dated 08/08/2019; Chest Single View dated 08/07/2019; Chest Single Vie w dated 08/07/2019; CHEST SINGLE VIEW dated 04/04/2012; CT CHEST,ABD,PELVIS W/O dated 08/08/2019 FINDINGS: Portable technique limits examination quality. Tip of the ET tube is above the jaspal. Enteric tube descends into the upper abdomen. Hazy appearance of the right inferior lung field is unchanged likely a combination of pleural fluid/ atelectasis. Th e heart is moderately enlarged in size. No displaced fractures.
--- NOTE | 2019-08-09 17:07 | PN ---
Date of Progress Note: 08/09/2019 Subjective: Patient seen and examined. Chart reviewed and case discussed with RN and Dr. Griggs. Patient did have some episodes of ectopy last night and appears somewhat more dusky this morning, not significantly following commands. Does move extremities. No family at the bedside. Medications: List reviewed. Physical Examination: Vital Signs: Temperature 97.8, heart rate 72, blood pressure 98/42, respirations 13, O2 100% on ET tube. General: Intubated, sedated. Does not follow commands, ill-appearing, elderly female, obese. CV: S1, S2, irregularly irregular. Peripheral pulses weak. Respiratory: Diminished breath sounds. Some crackles present. No wheezing or stridor. Gastrointestinal: Abdomen is soft, nondistended. Positive bowel sounds. No guarding or rigidity. Extremities: No clubbing or cyanosis. Patient has pedal edema. Neurologic: Intubated, sedated. Does move all 4 extremities. Does not follow commands. Opens eyes to name. Laboratory Data: Sodium 139, potassium 4, chloride 104, CO2 of 28, BUN 48, creatinine 1.37, glucose 185, calcium 8, magnesium 2.6, albumin 2.6. WBC 5.8, H and H 8.8 and 27.3, platelets 307, neutrophils 55.9%. Blood cultures; gram- positive cocci, coagulase-negative Staph, 3/4 bottles, and gram-positive rods also present. Stool occult blood was negative. Chest x-ray shows ET tube above jaspal. Enteric tube distends into the upper abdomen. Hazy appearance of the right inferior lung field, unchanged; likely combination of pleural fluid , atelectasis. Heart moderately enlarged. CT abdomen, chest, pelvis shows moderate to small right pleural effusion, small left pleural effusion, remainder of the lungs are clear. Small amount of ascites. Rectum distended with stool. No evidence of diverticulitis, vascular calcifications. Assessment: 84-year-old female with; 1. Acute respiratory failure with hypoxia and hypercapnia. Continue weaning as tolerated, likely secondary to volume overload from systolic heart failure. Patient also has bilateral pleural effusions. 2. Acute metabolic encephalopathy, likely related to above. Patient will open her eyes to her name, but does not follow any commands. We will obtain EEG and consider neurology consultation if not responding. 3. Persistent hypoglycemia. Blood sugar levels have improved. D5 half NS has been discontinued. We will continue to monitor blood glucose levels closely. 4. Elevated troponin level. Ejection fraction is very low at 32%. Appreciate Cardiology input. 5. Hemoptysis. Patient is still having some fresh blood from the ET tube. Hemoglobin stable. Chest CT was negative. Xarelto is on hold. 6. Microcytic hypochromic anemia, likely exacerbated by acute blood loss anemia. We will continue oral iron supplements. Currently on back order at the pharmacy. Patient has received 1 unit of PRBCs. Continue to monitor H and H, transfuse as needed. 7. Coronary artery disease ione artery and ione heart without angina, stable. 8. Diabetes mellitus type 2, insulin requiring. Monitor blood glucose levels. 9. Generalized osteoarthritis, stable. 10. History of atrial fibrillation, paroxysmal. Xarelto on hold due to anemia and hemoptysis, rate controlled. 11. Essential hypertension. Patient is currently hypotensive, now off vasopressors. 12. Congestive heart failure, acute on chronic, secondary to systolic dysfunction. We will continue to monitor I's and O's, free fluid restriction. 13. Mixed hyperlipidemia. We will continue statin. 14. Hypothyroidism. Continue Synthroid. 15. Gastroesophageal reflux disease without esophagitis. Continue IV PPI. 16. Morbid obesity. 17. Deep venous thrombosis prophylaxis. SCDs. Plan: Overall guarded prognosis. Obtain EEG, possible neuro evaluation. /MARIELA Voice ID: [id number] Report ID: [id number] MAYANK
--- NOTE | 2019-08-09 20:36 | PN ---
Date of Progress Note: 08/09/2019 Ms. Wilson is 84, was admitted with respiratory failure, probably secondary to a combination of home supervisor ephraim obstructive pulmonary disease as well as acute on chronic systolic congestive heart failure. She has altered mental status, pleural effusion, obesity, chronic atrial fibrillation, chronic hypertens ion, dyslipidemia, diabetes as well as coronary artery disease. She has improved responding to comma nd, but remains intubated. Echocardiogram showed an ejection fraction of about 30% consistent with s ystolic congestive heart failure. I agree with her present regimen, agree with diuresis. Hopefully, will be able to wean her off the ventilator soon. JEVON/MODL Voice ID: [id number] Report ID: [id number]
--- NOTE | 2019-08-09 20:43 | PN ---
Date of Progress Note: 08/09/2019 Ms. Wilson was admitted on 08/07/2019, with respiratory failure secondary to acute on chronic systol ic congestive heart failure. She remained intubated, more responsive. Attempts to wean her failed y esterday, we are going to retry today. Ejection fraction of 30%. She also is morbidly obese. Has h istory of pleural effusion, chronic atrial fibrillation with rate control. She has chronic coronary artery disease that is stable. She has diabetes, hypertension, dyslipidemia that are stable. Contin ue diuresis. Continue ventilation. Continue attempts to wean. We will continue to follow. The pat ielevi is on Lovenox. She was on Xarelto prior to this admission. NB/MODL Voice ID: [id number] Report ID: [id number]
[2019-08-09] MEDS: ATORVASTATIN 20 MG TAB PO SCH (21:00)
[2019-08-10] MEDS: PIPER/TAZO/NS 3.375gm 3.375 GM/100 ML BAG IVPB SCH (00:54)
[2019-08-10 05:43] LABS: Absolute Lymphocytes (CBC) 0.6 K/uL (0.7-4.9); Basophils % 0.2 % (0-1.3); Hematocrit 28.7 % (36.0-45.0); Lymphocytes % 12.5 % (15.3-44.8); RBC Red Blood Cell Count 3.82 M/uL (3.86-4.86)
[2019-08-10 05:55] LABS: Albumin 2.8 g/dL (3.4-5.0); Bilirubin Total 0.6 mg/dL (0.2-1.0); Potassium 4.4 mmol/L (3.5-5.1); Protein, Total 7.1 g/dL (6.4-8.2)
[2019-08-10] MEDS: LEVOTHYROXINE SOD 0.125 MG TAB PO SCH (06:06)
[2019-08-10 06:48] LABS: Anisocytosis 2+; Blood Morphology Comment NOTED (NOT SEEN); Platelet Estimate ADEQ; Urine White Blood Cell Casts OK
[2019-08-10] MEDS: THIAMINE 200 MG/2 ML INJ IVP SCH (09:40)
[2019-08-10] MEDS: DIGOXIN 0.125 MG TABLET PO SCH (09:40)
[2019-08-10] MEDS: FAMOTIDINE 20 MG/2 ML VIAL IV SCH (09:41)
[2019-08-10] MEDS: FERROUS SULFATE 325 MG TAB PO SCH ×2 (10:23→19:52)
[2019-08-10] MEDS: VANCOMYCIN 2 GM in NA CHLORIDE 0.9% 500 ML IVPB SCH (13:17)
--- NOTE | 2019-08-10 15:53 | PN ---
Date of Progress Note: 08/10/2019 Subjective: Patient seen and examined. Chart reviewed and case discussed with RN and Dr. Griggs. Patient was extubated yesterday, doing well. This morning, somewhat lethargic and ill appearing. Physical Examination: CV: S1, S2, irregularly irregular. Peripheral pulses present. Respiratory: Diminished breath sounds. Crackles heard. No wheezing or stridor. No use of accessor y muscles. Gastrointestinal: Abdomen is soft, nontender, nondistended. Positive bowel sounds. No guarding or rigidity. Extremities: No clubbing or cyanosis. Patient has diffuse anasarca. Neurologic: Nonfocal. Strength is symmetric in bilateral upper and lower extremities. Sensation in tact to light touch. Speech is normal. Follows commands. Laboratory Data: Sodium 139, potassium 4.4, chloride 106, CO2 of 27, BUN 42, creatinine 1.23, glucos e 225, calcium 8.2, albumin 2.8. WBC 4.9, H and H of 8.6 and 28.7, platelets 320. Blood cultures gr owing Staph epidermidis. Assessment: 84-year-old female with: 1.Acute respiratory failure with hypoxia and hypercapnia, now off the ventilator, doing well on supp lemental oxygen via nasal cannula, secondary to systolic heart failure and pleural effusions. 2.Acute metabolic encephalopathy, likely related to her hypoglycemia. Patient after extubation is a wake, alert, oriented. No neurological deficits. 3.Diffuse anasarca, likely related to her systolic heart failure. We will start her on diuresis. 4.Persistent hypoglycemia. Blood sugar levels are now improved off IV fluids. We will continue to monitor. 5.Elevated troponin level. We will continue with Cardiology recommendations. Echo showed ejection fraction of 32%. 6.Hemoptysis. Still having some episodes. Hemoglobin is stable. Xarelto is on hold. We will cons ider restarting if okay with Pulmonology. 7.Microcytic hypochromic anemia, likely exacerbated by acute blood loss anemia. We will continue wi th oral iron. Patient has received 1 unit of PRBC transfusion. 8.Coronary artery disease [place] artery and [place] heart without angina, stable. 9.Diabetes mellitus type 2, insulin requiring. Currently with hypoglycemia. We will monitor blood glucose levels. Blood glucose levels are improving. 10.Generalized osteoarthritis, stable. 11.History of atrial fibrillation, paroxysmal. Xarelto is on hold due to hemoptysis and anemia. Cu rrently rate controlled. 12.Essential hypertension. Blood pressure is now in the one-teens improving, now off vasopressors. 13.Congestive heart failure, acute on chronic systolic dysfunction. We will add diuretics, monitor I's and O's, free fluid restriction. 14.Mixed hyperlipidemia. Continue statin. 15.Hypothyroidism. Continue Synthroid. 16.Gastroesophageal reflux disease without esophagitis. We will continue PPI. Switch to oral. 17.Morbid obesity. BMI 42.3. 18.Deep venous thrombosis prophylaxis with SCDs. Plan: Step down from ICU. Patient will need diuretics and PT, OT, and speech therapy. Patient is c omplaining of some dysphagia. Discharge planning. /MARIELA Voice ID: [id number] Report ID: [id number]
[2019-08-10] MEDS: FUROSEMIDE 40 MG/4 ML VIAL IV SCH ×2 (17:00→20:22)
[2019-08-10] MEDS: ATORVASTATIN 20 MG TAB PO SCH (19:52)
[2019-08-10] MEDS ORDERED: GLUCAGON 1 MG/VIAL IM PRN (23:29)
[2019-08-10] MEDS ORDERED: D50W 25 GM/50 ML SYRINGE/VIAL IV PRN (23:29)
[2019-08-11] MEDS: ACETAMINOPHEN 500 MG TAB PO PRN ×2 (00:10→04:09)
[2019-08-11] MEDS: INSULIN -REGULAR HUMAN 50 UNIT/0.5 ML ML SQ SCH ×5 (00:11→21:24)
[2019-08-11] MEDS: LEVOTHYROXINE SOD 0.125 MG TAB PO SCH (05:40)
[2019-08-11 05:46] VITALS: BMI 42.4
[2019-08-11 06:54] LABS: Absolute Lymphocytes (CBC) 1.4 K/uL (0.7-4.9); Basophils % 0.3 % (0-1.3); Hematocrit 24.3 % (36.0-45.0); Lymphocytes % 20.7 % (15.3-44.8); MPV 7.9 fL (7.6-11.3); RBC Red Blood Cell Count 3.21 M/uL (3.86-4.86)
[2019-08-11 07:10] LABS: Albumin 2.4 g/dL (3.4-5.0); Bilirubin Total 0.4 mg/dL (0.2-1.0); Potassium 3.6 mmol/L (3.5-5.1); Protein, Total 5.9 g/dL (6.4-8.2)
[2019-08-11] MEDS: THIAMINE 200 MG/2 ML INJ IVP SCH (08:15)
[2019-08-11] MEDS: FAMOTIDINE 20 MG/2 ML VIAL IV SCH (08:15)
[2019-08-11] MEDS: FUROSEMIDE 40 MG/4 ML VIAL IV SCH ×2 (08:15→17:18)
[2019-08-11] MEDS: DIGOXIN 0.125 MG TABLET PO SCH (08:16)
[2019-08-11] MEDS: FERROUS SULFATE 325 MG TAB PO SCH ×2 (08:16→21:23)
[2019-08-11 13:44] LABS: Hematocrit 26.6 % (36.0-45.0)
--- NOTE | 2019-08-11 14:44 | PN ---
Date of Progress Note: 08/11/2019 Subjective: Patient seen and examined. Chart reviewed and case discussed with RN. Patient much mor e awake and alert this morning, eating breakfast. Medications list reviewed. Physical Examination: Vital Signs: Temperature 98.1, heart rate 85, blood pressure 115/67, respirations 17, O2 100% on 1 L via nasal cannula. General: Awake, alert and oriented x3, elderly female, morbidly obese ill-appearing. CV: S1 and S2, irregularly irregular. Peripheral pulses present. Respiratory: Moving air well bilaterally. However, diminished breath sounds at the bases. No crack les heard. Extremities: No clubbing or cyanosis. Patient has diffuse anasarca. Neurologic: Nonfocal. Moves all 4 extremities. Speech is normal. Laboratory Data: Sodium 145, potassium 3.6, chloride 113, CO2 of 27, BUN 43, creatinine 1.16, glucos e 224, calcium 6.9, albumin 2.4. WBC 6.6, H and H 7.5 and 24.3, platelets 266. Neutrophils 64%. Bl ood cultures growing out Staph epidermidis. Assessment: This 84-year-old female with: 1.Acute respiratory failure with hypoxia and hypercapnia, now extubated doing well. Patient is on s upplemental oxygen via nasal cannula. Patient had respiratory failure secondary to congestive heart failure and pleural effusions. 2.Acute metabolic encephalopathy, likely related to hypoglycemia, resolved, back to baseline. 3.Diffuse anasarca secondary to heart failure. Continue diuretics. Monitor I's and O's. 4.Persistent hypoglycemia. Patient now has elevated blood sugar levels in the 200s. Start on slidi ng scale and monitor blood glucose levels. 5.Elevated troponin level. Patient has decreased EF on echocardiogram. Cardiology on board. No in tervention planned at this time. 6.Hemoptysis. Stabilize hemoglobin is dropped to 7.5. We will repeat this afternoon. Xarelto stil l on hold. If hemoglobin dropping, we will continue to hold. 7.Microcytic hypochromic anemia, exacerbated by acute blood loss anemia secondary to hemoptysis. Co ntinue with iron. Patient is status post 1 unit PRBCs. We will continue to monitor H and H and bundy sfuse as needed. 8.Coronary artery disease, [place] artery and [place] heart without angina, stable. 9.Diabetes mellitus type 2, insulin requiring now with hyperglycemia, sliding scale insulin has been added. We will monitor. 10.Generalized osteoarthritis, stable. 11.Atrial fibrillation, chronic. Xarelto on hold due to hemoptysis and anemia. We will monitor H a nd H for restarting. 12.Essential hypertension. Patient was hypotensive. Now blood pressure is somewhat normalizing, of f pressors. 13.Acute on chronic systolic heart failure. Continue with diuretics. Monitor I's and O's. Free fl uid restriction. Echo shows EF of 32%. 14.Mixed hyperlipidemia. Continue statin. 15.Hypothyroidism, on Synthroid. 16.Gastroesophageal reflux disease without esophagitis. Continue PPI. 17.Morbid obesity. BMI 42.3. 18.Deep vein thrombosis prophylaxis SCDs. Plan is to step down from ICU. Continue with PT, OT. Lopez gibson will likely return to nursing facility with PT, once stable. 19.Bacteremia secondary to Staph epidermidis. Patient came in with hypotension, hypothermia, altere d mental status. Elevated troponin level. Likely would not consider this contaminant, positive in 4 /4 bottles. Continue treatment with vancomycin. Consider switching to oral upon discharge. SA/MODL Voice ID: [id number] Report ID: [id number]
[2019-08-11] MEDS: RIVAROXABAN 10 MG TABLET PO SCH (19:07)
[2019-08-11] MEDS: ATORVASTATIN 20 MG TAB PO SCH (21:24)
[2019-08-12] MEDS: VANCOMYCIN 2 GM in NA CHLORIDE 0.9% 500 ML IVPB SCH (00:30)
[2019-08-12 05:05] LABS: Absolute Lymphocytes (CBC) 1.9 K/uL (0.7-4.9); Basophils % 0.6 % (0-1.3); Lymphocytes % 27.2 % (15.3-44.8); MPV 7.6 fL (7.6-11.3); RBC Red Blood Cell Count 3.59 M/uL (3.86-4.86)
[2019-08-12] MEDS: LEVOTHYROXINE SOD 0.125 MG TAB PO SCH (05:09)
[2019-08-12 05:31] LABS: Albumin 2.5 g/dL (3.4-5.0); Bilirubin Total 0.6 mg/dL (0.2-1.0); Potassium 3.3 mmol/L (3.5-5.1); Protein, Total 6.2 g/dL (6.4-8.2)
[2019-08-12] MEDS: INSULIN -REGULAR HUMAN 50 UNIT/0.5 ML ML SQ SCH ×4 (07:30→21:41)
[2019-08-12] MEDS: FERROUS SULFATE 325 MG TAB PO SCH ×2 (09:32→21:42)
[2019-08-12] MEDS: THIAMINE 200 MG/2 ML INJ IVP SCH (09:32)
[2019-08-12] MEDS: FUROSEMIDE 40 MG/4 ML VIAL IV SCH ×2 (09:32→17:34)
[2019-08-12] MEDS: DIGOXIN 0.125 MG TABLET PO SCH (09:32)
[2019-08-12] MEDS ORDERED: KCL 20 MEQ/100 mL IVPB 20 MEQ/100 ML BAG IV ONE (15:00)
--- NOTE | 2019-08-12 15:34 | PN ---
Date of Progress Note: 08/12/2019 Subjective: Patient seen and examined. Chart reviewed and case discussed with RN. Patient doing well since being stepped down from the ICU, now off supplemental oxygen. No family at the bedside. Medications: List reviewed. Physical Examination: Vital Signs: Temperature 97.8, heart rate 83, blood pressure 109/53, respirations 18, O2 at 96% on room air. General: Awake, alert, oriented x3. Elderly female, morbidly obese, somewhat ill-appearing. CV: S1, S2. Irregularly irregular. Peripheral pulses weak. Respiratory: Diminished breath sounds. No wheezing. No use of accessory muscles or stridor. HEENT: Normocephalic, atraumatic. PERRLA. EOMI. Patient does have some yellow crusting on the eyelids in the right eye and some hyperemia of the bottom eyelid. Gastrointestinal: Abdomen is soft, nontender, nondistended. Positive bowel sounds. Extremities: No clubbing, cyanosis. Patient does have edema, however, improved. Laboratory Data: Sodium 143, potassium 3.3, chloride 106, CO2 of 33, BUN 33, creatinine 0.95, glucose 165, calcium 7.6, albumin 2.5. WBC 7.1, H and H 8.2 and 27, platelets 256. Blood culture; 2/4 bottles growing Staph epidermidis. Assessment: 84-year-old female with; 1. Acute respiratory failure with hypoxia and hypercapnia, now off mechanical ventilation, now on room air, doing well. This was secondary to systolic heart failure and pleural effusions. 2. Acute metabolic encephalopathy, likely related to hypoglycemia, back to baseline. 3. Diffuse anasarca secondary to heart failure, improving with diuresis. We will repeat chest x-ray in a.m. 4. Persistent hypoglycemia, resolved, unclear etiology. Continue to monitor blood glucose levels. 5. Elevated troponin level. Appreciate Cardiology input. 6. Acute on chronic systolic congestive heart failure, EF 32%. Continue diuretics. Monitor I's and O's. 7. Hemoptysis, resolved. Hemoglobin is stable. Resume Xarelto. 8. Microcytic hypochromic anemia, status post 1 unit PRBC transfusion, likely exacerbated by acute blood loss anemia from hemoptysis. Continue with iron supplementation. 9. Coronary artery disease [place] artery and [place] heart without angina, stable. 10. Diabetes mellitus type 2, insulin requiring, now with hyperglycemia. We will continue sliding scale insulin. Monitor blood glucose levels. 11. Generalized osteoarthritis, stable. 12. History of atrial fibrillation, chronic, currently on Xarelto. Monitor for signs of bleeding. 13. Acute hypotension was on vasopressors. Blood pressure is improved. 14. Mixed hyperlipidemia. Statin. 15. Hypothyroidism. Continue Synthroid. 16. Gastroesophageal reflux disease without esophagitis. Continue PPI. 17. Morbid obesity. BMI greater than 40. Plan: PT/OT. Discharge planning. Repeat chest x-ray in a.m. We will start on erythromycin bacterial conjunctivitis in the right eye. /MARIELA Voice ID: [id number] Report ID: [id number]
[2019-08-12] MEDS: RIVAROXABAN 10 MG TABLET PO SCH (17:35)
[2019-08-12] MEDS: ATORVASTATIN 20 MG TAB PO SCH (21:42)
[2019-08-12] MEDS: ERYTHROMYCIN 1 APPL/1 GM TUBE RIGHT EYE SCH (21:43)
[2019-08-13] MEDS: LEVOTHYROXINE SOD 0.125 MG TAB PO SCH (05:35)
[2019-08-13 06:00] LABS: Basophils % 0.8 % (0-1.3); Hematocrit 26.2 % (36.0-45.0); Lymphocytes % 32.7 % (15.3-44.8); MPV 7.9 fL (7.6-11.3)
[2019-08-13 06:27] LABS: Albumin 2.3 g/dL (3.4-5.0); Bilirubin Total 0.6 mg/dL (0.2-1.0); Potassium 3.4 mmol/L (3.5-5.1); Protein, Total 5.7 g/dL (6.4-8.2)
--- NOTE | 2019-08-13 07:20 | RAD REPORT ---
EXAM DESCRIPTION: RAD - Chest Single View - 08/13/2019 6:19 am CLINICAL HISTORY: CHF, pleural effusion COMPARISON: August 09 TECHNIQUE: AP portable chest image was obtained 0613 hour . FINDINGS: Endotracheal tube and enteric tube have been removed. Lung volumes are low. Patient has ri ght hand and wrist overlie the lower chest limiting detail. Significant change from comparison is xena btful. Right-side pleural effusion appears improved. Trachea is midline. Heart and vasculature are no rmal. No pneumothorax. No acute bony abnormality seen. No acute aortic findings suspected. IMPRESSION: Right lung base assessment is limited due to the overlying right hand and wrist. Right-sided pleural effusion appears to have decreased since August 09.
[2019-08-13] MEDS ORDERED: POTASSIUM CL SA 10 MEQ TAB PO ONE (09:00)
[2019-08-13] MEDS: DIGOXIN 0.125 MG TABLET PO SCH (09:36)
[2019-08-13] MEDS: THIAMINE 200 MG/2 ML INJ IVP SCH (09:36)
[2019-08-13] MEDS: ERYTHROMYCIN 1 APPL/1 GM TUBE RIGHT EYE SCH ×3 (09:37→21:30)
[2019-08-13] MEDS: FERROUS SULFATE 325 MG TAB PO SCH ×2 (09:37→21:30)
[2019-08-13] MEDS: INSULIN -REGULAR HUMAN 50 UNIT/0.5 ML ML SQ SCH ×4 (09:42→21:31)
[2019-08-13] MEDS: FUROSEMIDE 40 MG/4 ML VIAL IV SCH ×2 (11:49→16:03)
[2019-08-13] MEDS: VANCOMYCIN 2 GM in NA CHLORIDE 0.9% 500 ML IVPB SCH (13:14)
--- NOTE | 2019-08-13 14:32 | P.PN ---
Subjective Date of Service: 08/13/19 Chief Complaint: Respiratory failure anemia Patient seen and examined at bedside with RN. Chart reviewed. Case discussed with pulmonology at this time. No complaints to offer overnight. Doing well overall. Review of Systems 10-point ROS is otherwise unremarkable Physical Examination - Vital Signs Temperature: 97.7 F Blood Pressure: 108/61 Pulse: 89 Respirations: 18 Pulse Ox (%): 96 - Physical Exam General: Alert, In no apparent distress HEENT: Atraumatic, PERRLA, EOMI Neck: Supple, JVD not distended Respiratory: Clear to auscultation bilaterally, Normal air movement Cardiovascular: Regular rate/rhythm, Normal S1 S2 Gastrointestinal: Normal bowel sounds, No tenderness Musculoskeletal: No tenderness Integumentary: No rashes Neurological: Normal speech, Normal tone, Normal affect Lymphatics: No axilla or inguinal lymphadenopathy - Studies Medications List Reviewed: Yes Assessment And Plan - Plan Assessment and plan 1.Acute respiratory failure with hypoxia and hypercapnia -Off mechanical ventilation, now on room air, doing well. -most likely secondary to systolic heart failure and pleural effusions. 2.Acute metabolic encephalopathy, likely related to hypoglycemia -back to baseline. Alert and oriented x2 3.Acute on chronic systolic congestive heart failure, EF 32%. -currently on IV Lasix will continue that here in the hospital -monitor strict I and O -fluid restriction at this 4.Hemoptysis, resolved. -Hemoglobin is stable. Resume Xarelto. 5.Microcytic hypochromic anemia -status post 1 unit PRBC transfusion, likely exacerbated by acute blood loss anemia from hemoptysis. -Continue with iron supplementation. 6.Coronary artery disease [place] artery and [place] heart without angina, stable. 7.Diabetes mellitus type 2, insulin requiring, now with hyperglycemia. We will continue sliding scale insulin. Monitor blood glucose levels. 8.Generalized osteoarthritis, stable. 9.History of atrial fibrillation, chronic, currently on Xarelto. Monitor for signs of bleeding. 10.Mixed hyperlipidemia. Statin. 11.Hypothyroidism. Continue Synthroid. 12.Gastroesophageal reflux disease without esophagitis. Continue PPI. 13.Morbid obesity. BMI greater than 40. 14.Sepsis 2.2 to Bactermia -Blood culture positive for Staph epidermis -started on IV vancomycin at this time -will get PICC line Plan: PT/OT. Discharge planning to [facility] for IV antibiotics along with long-term placement. Discharge Plan: Home Plan to discharge in: 48 Hours - Code Status/Comfort Care Code Status Assessed: Yes Critical Care: No
[2019-08-13] MEDS: RIVAROXABAN 10 MG TABLET PO SCH (16:03)
[2019-08-13] MEDS: ATORVASTATIN 20 MG TAB PO SCH (21:29)
[2019-08-14 05:13] LABS: Absolute Lymphocytes (CBC) 2.1 K/uL (0.7-4.9); Basophils % 1.1 % (0-1.3); Hematocrit 26.4 % (36.0-45.0); Lymphocytes % 29.7 % (15.3-44.8); MPV 7.9 fL (7.6-11.3); RBC Red Blood Cell Count 3.53 M/uL (3.86-4.86)
[2019-08-14 05:23] LABS: Albumin 2.5 g/dL (3.4-5.0); Bilirubin Total 0.6 mg/dL (0.2-1.0); Potassium 3.7 mmol/L (3.5-5.1); Protein, Total 6.3 g/dL (6.4-8.2)
[2019-08-14] MEDS: LEVOTHYROXINE SOD 0.125 MG TAB PO SCH (05:26)
[2019-08-14] MEDS: INSULIN -REGULAR HUMAN 50 UNIT/0.5 ML ML SQ SCH ×4 (08:43→20:08)
[2019-08-14] MEDS: THIAMINE 200 MG/2 ML INJ IVP SCH (08:44)
[2019-08-14] MEDS: FERROUS SULFATE 325 MG TAB PO SCH ×2 (08:45→20:08)
[2019-08-14] MEDS: DIGOXIN 0.125 MG TABLET PO SCH (08:45)
[2019-08-14] MEDS: ERYTHROMYCIN 1 APPL/1 GM TUBE RIGHT EYE SCH ×3 (08:45→20:08)
[2019-08-14] MEDS: FUROSEMIDE 40 MG/4 ML VIAL IV SCH ×2 (08:48→17:09)
--- NOTE | 2019-08-14 14:28 | P.PN ---
Subjective Date of Service: 08/14/19 Chief Complaint: Respiratory failure anemia Patient seen and examined at bedside with RN. Chart reviewed. Case discussed with pulmonology at this time. No complaints to offer overnight. Doing well overall. Review of Systems 10-point ROS is otherwise unremarkable Physical Examination - Vital Signs Temperature: 98.9 F Blood Pressure: 123/84 Pulse: 88 Respirations: 18 Pulse Ox (%): 94 - Physical Exam General: Alert, In no apparent distress HEENT: Atraumatic, PERRLA, EOMI Neck: Supple, JVD not distended Respiratory: Clear to auscultation bilaterally, Normal air movement Cardiovascular: Regular rate/rhythm, Normal S1 S2 Gastrointestinal: Normal bowel sounds, No tenderness Musculoskeletal: No tenderness Integumentary: No rashes Neurological: Normal speech, Normal tone, Normal affect Lymphatics: No axilla or inguinal lymphadenopathy - Studies Microbiology Data (last 24 hrs): 08/07/19 06:49 Blood - Blood Aerobic Blood Culture - Final Micrococcus Species 08/07/19 06:49 Blood - Blood Gram Stain - Final 08/07/19 06:49 Blood - Blood Anaerobic Blood Culture - Final No growth in 5 days. Medications List Reviewed: Yes Assessment And Plan - Plan Assessment and plan 1.Acute respiratory failure with hypoxia and hypercapnia -Off mechanical ventilation, now on room air, doing well. -most likely secondary to systolic heart failure and pleural effusions. 2.Acute metabolic encephalopathy, likely related to hypoglycemia -back to baseline. Alert and oriented x2 3.Acute on chronic systolic congestive heart failure, EF 32%. -currently on IV Lasix will continue that here in the hospital -monitor strict I and O -fluid restriction at this 4.Hemoptysis, resolved. -Hemoglobin is stable. Resume Xarelto. 5.Microcytic hypochromic anemia -status post 1 unit PRBC transfusion, likely exacerbated by acute blood loss anemia from hemoptysis. -Continue with iron supplementation. 6.Coronary artery disease [place] artery and [place] heart without angina, stable. 7.Diabetes mellitus type 2, insulin requiring, now with hyperglycemia. We will continue sliding scale insulin. Monitor blood glucose levels. 8.Generalized osteoarthritis, stable. 9.History of atrial fibrillation, chronic, currently on Xarelto. Monitor for signs of bleeding. 10.Mixed hyperlipidemia. Statin. 11.Hypothyroidism. Continue Synthroid. 12.Gastroesophageal reflux disease without esophagitis. Continue PPI. 13.Morbid obesity. BMI greater than 40. 14.Sepsis 2.2 to Bactermia -Blood culture positive for Staph epidermis -started on IV vancomycin at this time -will get PICC line Plan: PT/OT. Discharge planning to [facility] side for IV antibiotics along with senior care placement. Discharge Plan: Long-Term Plan to discharge in: 48 Hours - Code Status/Comfort Care Code Status Assessed: Yes Critical Care: No
[2019-08-14] MEDS: RIVAROXABAN 20 MG TABLET PO SCH (17:11)
[2019-08-14] MEDS ORDERED: POTASSIUM CL SA 10 MEQ TAB PO ONE (19:25)
[2019-08-14] MEDS: ATORVASTATIN 20 MG TAB PO SCH (20:07)
[2019-08-15] MEDS: VANCOMYCIN 2 GM in NA CHLORIDE 0.9% 500 ML IVPB SCH (01:00)
[2019-08-15] MEDS: LEVOTHYROXINE SOD 0.125 MG TAB PO SCH (05:23)
[2019-08-15 05:50] LABS: Potassium 3.7 mmol/L (3.5-5.1)
[2019-08-15] MEDS ORDERED: POTASSIUM CL SA 10 MEQ TAB PO ONE (09:00)
[2019-08-15] MEDS: FUROSEMIDE 40 MG/4 ML VIAL IV SCH ×2 (09:00→16:55)
[2019-08-15] MEDS: FERROUS SULFATE 325 MG TAB PO SCH ×2 (09:40→22:20)
[2019-08-15] MEDS: THIAMINE 200 MG/2 ML INJ IVP SCH (09:40)
[2019-08-15] MEDS: INSULIN -REGULAR HUMAN 50 UNIT/0.5 ML ML SQ SCH ×4 (09:40→22:24)
[2019-08-15] MEDS: DIGOXIN 0.125 MG TABLET PO SCH (09:40)
[2019-08-15] MEDS: ERYTHROMYCIN 1 APPL/1 GM TUBE RIGHT EYE SCH ×3 (09:45→22:20)
--- NOTE | 2019-08-15 11:19 | RAD REPORT ---
EXAM DESCRIPTION: XR Chest, 1 View CLINICAL HISTORY: The patient is 84 years old and is Female; PICC Placement TECHNIQUE: Frontal view of the chest. COMPARISON: No relevant prior studies available. FINDINGS: LUNGS: Bibasilar opacities are noted. PLEURAL SPACE: Findings suggest a right pleural effusion. No pneumothorax. HEART: The cardiac silhouette is enlarged. MEDIASTINUM: Unremarkable. BONES/JOINTS: Unremarkable. VASCULATURE: Prominence of central vasculature is present. TUBES, LINES AND DEVICES: A right upper extremity PICC is present with the tip in the region of the SVC/RA junction. IMPRESSION: 1. A right upper extremity PICC is present with the tip in the region of the SVC/RA ju nction. 2. Cardiomegaly with findings suggestive of mild vascular congestion right pleural effusion. Electronically signed by: Yuly Lindsey MD 08/15/2019 12:11 AM IMMIGRATION ASSOCIATE Due to temporary technical issues with the PACS/Fluency reporting system, reports are being signed by the in house radiologist as a courtesy to ensure prompt reporting. The interpreting radiologist is f ully responsible for the content of the report.
[2019-08-15] MEDS: IPRATROPIUM BROM 0.5MG/2.5ML NEB SCH ×2 (13:13→20:00)
[2019-08-15] MEDS: RIVAROXABAN 20 MG TABLET PO SCH (16:55)
[2019-08-15] MEDS: HYDROCODONE/APAP 5/325 MG TAB PO PRN ×2 (16:55→22:23)
[2019-08-15] MEDS: ATORVASTATIN 20 MG TAB PO SCH (22:19)
--- NOTE | 2019-08-16 00:46 | PN ---
Subjective: This patient was seen and examined at the bedside with RN. Chart was reviewed. Patient appeared to be stable. No shortness of breath. Discharge plan in process. Review of Systems: Ten-point review of systems is otherwise unremarkable. Physical Examination: Vitals: Temperature 98.4, heart rate 92, respiratory rate 20, blood pressure 125/61, oxygen saturati on 95% on room air. HEENT: Atraumatic. PERRLA. EOMI. Neck: Supple. No JVD. Chest: Clear to auscultation. Decreased breath sounds. No respiratory distress. Heart: Regular rhythm and rate. Normal S1, S2. No murmur. Abdomen: Soft, obese. No tenderness. Hypoactive bowel sounds. Lower Extremities: No tenderness. No cyanosis. Skin: No rashes. Neuro: Patient is awake, alert, and oriented x3. Nonfocal. Psych: Mood stable. No anxiety or depression. Laboratory Data: Sodium 142, potassium of 3.7, creatinine 0.86, blood sugar 177, calcium 7.7. Assessment And Plan: 1.Acute respiratory failure with hypoxia and hypercapnia. Patient is off mechanical ventilation. H er oxygen is maintained on room air. Likely, this is secondary to systolic heart failure and pleural effusion. 2.Acute metabolic encephalopathy, likely secondary to hypoglycemia. This has resolved. She is aler t and oriented x3. 3.Acute on chronic systolic congestive heart failure. Echo demonstrated ejection fraction 32%. We will continue IV Lasix in the hospital. Continue fluid restriction. 4.Hemoptysis. This has resolved. Hemoglobin stable. 5.Microcytic hypochromic anemia. She received 1 unit of blood and now hemoglobin stable. Continue iron supplement. 6.Bacteremia with Staphylococcus epidermidis. Blood culture grew Staphylococcus epidermidis in 2/2 bottles. We are planning to discharge patient on IV vancomycin for a total of 2 weeks. 7.History of coronary artery disease. This is stable. 8.Type 2 diabetes, on sliding scale. 9.Osteoarthritis. This is stable. 10.History of atrial fibrillation. Continue digoxin and Xarelto. 11.Hypothyroidism. Continue Synthroid. Patient is stable. Plan to discharge patient back to shelter home with IV vancomycin for a total of 2 weeks. PI CC line is placed. QT/MODL Voice ID: [id number] Report ID: [id number]
[2019-08-16] MEDS: IPRATROPIUM BROM 0.5MG/2.5ML NEB SCH ×4 (02:00→20:05)
[2019-08-16 05:37] LABS: Potassium 3.8 mmol/L (3.5-5.1)
[2019-08-16] MEDS ORDERED: POTASSIUM 25 MEQ EFFERV TAB PO ONE (05:45)
[2019-08-16] MEDS: INSULIN -REGULAR HUMAN 50 UNIT/0.5 ML ML SQ SCH ×4 (07:30→22:20)
--- NOTE | 2019-08-16 07:31 | RAD REPORT ---
EXAM DESCRIPTION: CT - Head Brain Wo Cont - 08/16/2019 7:11 am CLINICAL HISTORY: Right-sided facial droop COMPARISON: CT head August 07 TECHNIQUE: Axial 5 mm thick images of the head were obtained without IV contrast. All CT scans are performed using dose optimization technique as appropriate and may include automated exposure control or mA/KV adjustment according to patient size. FINDINGS: No intracranial hemorrhage, mass, edema or shift of mid-line structures. No acute infarcti on changes seen. Advanced atrophy changes are present with moderate chronic ischemic change. Ventricl es are in proportion to volume loss. Patient has very dense arterial tree calcifications. Intracrania l findings are similar to comparison. Mastoid air cells and visualized portions of the paranasal sinuses are clear. No acute bony findings. IMPRESSION: Negative non-contrast CT head examination for acute finding. No significant change from August 07.
[2019-08-16] MEDS: ERYTHROMYCIN 1 APPL/1 GM TUBE RIGHT EYE SCH ×3 (09:00→20:29)
[2019-08-16] MEDS: LEVOTHYROXINE SOD 0.125 MG TAB PO SCH (09:30)
[2019-08-16] MEDS: FUROSEMIDE 40 MG/4 ML VIAL IV SCH ×2 (09:39→17:30)
[2019-08-16] MEDS: DIGOXIN 0.125 MG TABLET PO SCH (09:39)
[2019-08-16] MEDS: FERROUS SULFATE 325 MG TAB PO SCH ×2 (09:39→20:28)
[2019-08-16] MEDS: THIAMINE 200 MG/2 ML INJ IVP SCH (09:43)
[2019-08-16] MEDS: VANCOMYCIN 2 GM in NA CHLORIDE 0.9% 500 ML IVPB SCH (13:00)
[2019-08-16 16:07] LABS: Albumin 2.5 g/dL (3.4-5.0); Bilirubin Total 0.5 mg/dL (0.2-1.0); Magnesium 2.1 mg/dL (1.8-2.4); Potassium 4.4 mmol/L (3.5-5.1); Protein, Total 6.4 g/dL (6.4-8.2)
[2019-08-16] MEDS: RIVAROXABAN 20 MG TABLET PO SCH (17:15)
[2019-08-16] MEDS ORDERED: METOPROLOL TARTRATE 5 MG/5 ML INJ IV PRN (18:23)
[2019-08-16] MEDS: ATORVASTATIN 20 MG TAB PO SCH (20:28)
[2019-08-16] MEDS: PROMOD 30 ML DOSE PO SCH (20:29)
--- NOTE | 2019-08-16 20:47 | PN ---
Subjective: This patient was seen and examined at the bedside with RN. This patient appears to have left facial drooping and slurred speech. She was very confused this morning and could not answer ou r question correctly. CT head was ordered, which is unremarkable. Neuro was consulted. I rechecked the patient in the afternoon. She appears to be more awake and alert in the afternoon. She denied nausea or vomiting. No fever or chills. She is asking for water. Physical Examination: Vital Signs: Temperature 99.2, heart rate 82, respiratory rate 20, blood pressure 117/58. HEENT: PERRLA. EOMI. Mild redness in both eye, which is chronic. Mild dry mouth. Neck: No JVD. Chest: Decreased breath sounds. Clear to auscultation. No respiratory distress. Heart: Normal S1, S2. Regular rhythm and rate. No murmur. Abdomen: Soft, no tenderness, very obese. Decreased bowel sound. Extremities: Bilateral 3+ edema. No cyanosis. No tenderness. Neuro: Patient awake, alert, oriented to place and people. Strength 3 to 4/5. Laboratory Data: Sodium 142, potassium 3.8, BUN 19, creatinine 0.85. Assessment/plan: 1.Acute respiratory failure with hypoxia and hypercapnia. She is off mechanical ventilation. Her o xygen can be maintained on room air. Continue DuoNeb nebulization treatment. The likely cause inclu eva systolic CHF versus pleural effusion. 2.Acute metabolic encephalopathy due. The likely cause includes hypoglycemia. Her mental status mcgrath s been fluctuating. She was confused this morning, but now is more awake and alert. CT head unremar kable. Patient experienced facial drooping and slurred speech this morning. Neurologist was consult ed and a brain MRI was ordered. 3.Acute on chronic systolic congestive heart failure. Her ejection fraction is 32% per echo. Hermilo nue IV Lasix for diuresis. Continue fluid restriction. 4.Hemoptysis. Resolved. 5.Microcytic hypochromic anemia. She received 1 unit of blood. Continue iron supplement. 6.Staphylococcal epidermidis bacteremia. She has been on IV vancomycin for 1 week. She needs anoth er 1 week of IV vancomycin for a total of 2 weeks. 7.Coronary artery disease. This is relatively stable. No chest pain. 8.Diabetes. We will continue sliding scale. 9.History of atrial fibrillation, currently this patient on digoxin and Xarelto. We will check a di goxin level in the morning. 10.Hypothyroidism, on Synthroid. Plan: Initially, I planned to discharge patient today to SNF. However, she experienced facial droop ing and slurred speech. We needed to rule out CVA. This patient's prognosis is guarded. I tried to call her son, but the number in the chart does not work. We will try to continue to talk to him. T his patient can be discharged to a skilled facility and continue 1 weeks of IV vancomycin if Neuro cl eared the possibility of stroke. She is a candidate for comfortable measure. I am trying to talk to her son again. QT/MODL Voice ID: [id number] Report ID: [id number]
[2019-08-16] MEDS ORDERED: LORazepam 2 MG/ML VIAL IV ONE (22:44)
--- NOTE | 2019-08-17 00:44 | CON ---
Reason For Consultation: Consultation called because of possible stroke and altered mental status. History Of Present Illness: Ms. Wilson is an 84-year-old patient who was admitted to [facility] 1-1/2 weeks ago with severe hypoglycemia, blood sugars down to the 20s, and altered mental stat us. She did receive IV fluids and glucose and her altered mental status improved. She subsequently was moved to the floor after being in the ICU. Reportedly a day ago, she was noticed by family to mcgrath ve what was felt to be left facial drooping and head CT scan was done. The study was negative for an acute ischemic or hemorrhagic stroke. The patient was evaluated today and at my evaluation, she had no evidence of any left-sided facial drooping. She actually had symmetric face and arms and the leg in terms of strength. There was no sensory loss in the right or left side of her face, arms, or leg s. She does have risk factors for stroke including dyslipidemia, hypertension, and diabetes mellitus . She is on Xarelto 20 mg daily for atrial fibrillation and has had prior myocardial infarction eliane g with coronary artery disease. Past Medical History: As indicated, congestive heart failure, dyslipidemia, hypothyroidism, gastroes ophageal reflux disease, atrial fibrillation, diabetes mellitus, myocardial infarction, and hypertens ion. Allergies: NO KNOWN DRUG ALLERGIES. Family History: Noncontributory. Medications: Lipitor 20 mg at bedtime, [place] 5/325 one every 6 hours as needed, digoxin 0.125 mg george ly, erythromycin to the right eye, ferrous sulfate 325 mg twice daily, Lasix 40 mg twice daily, Synth roid 0.125 mg daily, metoprolol 2.5 mg every 6 hours IV, Xarelto 20 mg daily, 30 mg daily, vitamin B1 100 mg daily. She is on vancomycin. We will go home on vancomycin to complete antibioti c course. Review of Systems: Ms. Wilson denies any prior to this hospitalization episodes of fevers or chills, nausea, vomiting, myalgias, arthralgias, rash, headache, weight change, or psychiatric issues. Physical Examination: Vital Signs: Blood pressure 110/61, pulse 107, respiratory rate 18 to 20, temperature 99.6, oxygen s aturation 90%. General: Ms. Wilson is resting in bed. She is in no acute distress. She is returning to baseline cognitive functioning. She has class 2 to 3 obesity. She is otherwise in no trauma. HEENT: Sclerae anicteric. Oropharynx is moist. Neck: Supple. Chest: Clear. Extremities: Mild edema. No cyanosis or clubbing. Neurological: She is alert and oriented to person, follows commands appropriately, although response s are slow. She has no cranial nerve deficits on examination. No facial drooping with good excursio ns and smiling bilaterally. Motor examination in the upper or lower extremities are symmetric with d iffuse weakness at least 4+ and symmetric. She has a stocking-glove loss to light touch and temperat ure. She has absent reflexes in the upper and lower extremities. Coordination while resting in bed is intact. Laboratory Studies: White blood cell count 7.1, hemoglobin 8.1, hematocrit 26.4, platelets 244. Janiya mistries: Sodium 141, potassium 4.4, chloride 103, carbon dioxide 33, BUN 19, creatinine 0.94, gluco se ranged from 166 to 228, calcium 8.2. Liver function studies are normal. Her vancomycin trough le vels are 14.3. Assessment: Ms. Wilson is an 84-year-old patient with a negative head CT scan. No evidence of acut e stroke. No evidence of stroke on examination as well. She did come in with severe hypoglycemia, w hich contributed to the significant altered mental status. In addition, blood cultures grew __ species in addition to Staph epidermidis and she received IV antibiotics for this and actually egne l be discharged to her senior care with continued IV antibiotics per primary team. Plan: Continue with aggressive management of stroke risk reduction including the Xarelto 20 mg daily for her atrial fibrillation. Continue with metoprolol for hypertension. Continue with aggressive g lucose management but not to have hypoglycemia. Continue with Lipitor 20 mg at bedtime. After discharge, patient may follow up with Dr. Elizondo's clinic 1 month later. PRASHANTH/MARIELA Voice ID: [id number] Report ID: [id number]
[2019-08-17] MEDS: IPRATROPIUM BROM 0.5MG/2.5ML NEB SCH ×2 (02:10→09:15)
[2019-08-17 04:34] LABS: Absolute Lymphocytes (CBC) 1.4 K/uL (0.7-4.9); Basophils % 1.3 % (0-1.3); Hematocrit 28.3 % (36.0-45.0); Lymphocytes % 18.8 % (15.3-44.8); MPV 7.5 fL (7.6-11.3); RBC Red Blood Cell Count 3.65 M/uL (3.86-4.86)
[2019-08-17 05:15] LABS: Digoxin Level 1.1 ng/mL (0.80-2.00); Magnesium 2.2 mg/dL (1.8-2.4); Potassium 4.1 mmol/L (3.5-5.1)
[2019-08-17] MEDS: LEVOTHYROXINE SOD 0.125 MG TAB PO SCH (06:48)
--- NOTE | 2019-08-17 08:59 | RAD REPORT ---
EXAM DESCRIPTION: MRI - Brain W/Wo Cont - 08/17/2019 12:58 am CLINICAL HISTORY: Right facial droop COMPARISON: August 16, [address] TECHNIQUE: Axial, sagittal, and coronal magnetic images of the brain were obtained. 20 cc MultiHance administered intravenously FINDINGS: Mild signal within periventricular, deep and subcortical white matter probably ischemic ch anges secondary to small vessel disease Prominent cerebral atrophy is present. The ventricles are normal in caliber. Diffusion-weighted/ ADC mapping sequences do not demonstrate evidence of an acute infarction. No abnormal enhancement within the brain is seen. An extra-axial fluid collection is not noted. Fluid within the sinuses/mastoids is not seen. A mucus retention cyst is present within the maxillary sinus IMPRESSION: No acute abnormality displayed
[2019-08-17] MEDS: PROMOD 30 ML DOSE PO SCH (09:00)
--- NOTE | 2019-08-17 09:05 | RAD REPORT ---
EXAM DESCRIPTION: MRI - MRA Neck W/Wo Cont - 08/17/2019 12:57 am CLINICAL HISTORY: Right facial droop COMPARISON: None. TECHNIQUE: Magnetic resonance angiogram of the neck was performed. 19 cc MultiHance was administered intravenously. 3D MIPS reconstruction performed FINDINGS: Mild plaque is present within common, internal and external carotid arteries. Moderate narrowing of the very proximal right and left vertebral arteries. Vertebral arteries are cod ominant IMPRESSION: Moderate narrowing of the very proximal right and left vertebral arteries Mild stenosis involving the carotid arteries NASCET criteria used. Mild 0-49% stenosis Moderate 50-69% stenosis Severe 70-99% stenosis
--- NOTE | 2019-08-17 09:05 | RAD REPORT ---
EXAM DESCRIPTION: MRI - MRA Head Wo Cont - 08/17/2019 12:57 am CLINICAL HISTORY: Right facial droop COMPARISON: None. TECHNIQUE: Magnetic resonance angiogram was performed. 3D MIPS reconstruction performed FINDINGS: The anterior cerebral, middle cerebral, posterior cerebral, distal internal carotid and ba silar arteries do not demonstrate a significant stenosis. 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 IMPRESSION: No significant abnormality displayed
[2019-08-17] MEDS: DIGOXIN 0.125 MG TABLET PO SCH (09:14)
[2019-08-17] MEDS: THIAMINE 200 MG/2 ML INJ IVP SCH (09:17)
[2019-08-17] MEDS: FERROUS SULFATE 325 MG TAB PO SCH (09:18)
[2019-08-17] MEDS: ERYTHROMYCIN 1 APPL/1 GM TUBE RIGHT EYE SCH (09:20)
[2019-08-17] MEDS: INSULIN -REGULAR HUMAN 50 UNIT/0.5 ML ML SQ SCH ×2 (09:21→12:28)
[2019-08-17] MEDS: FUROSEMIDE 40 MG/4 ML VIAL IV SCH (09:21)
--- NOTE | 2019-08-17 11:03 | P.DS ---
Admission Date: 08/07/19 Discharge Date: 08/17/19 Primary Care Provider: Wilfredo OR Disposition: TRANSFER TO [facility] Discharge Condition: GOOD Reason for Admission: Respiratory failure anemia Consultations: Neurology-Dr. Elizondo Procedures: CT Brain: FINDINGS: No intracranial hemorrhage, mass, edema or shift of mid-line structures. No acute infarction changes seen. Advanced atrophy changes are present with moderate chronic ischemic change. Ventricles are in proportion to volume loss. Patient has very dense arterial tree calcifications. Intracranial findings are similar to comparison. Mastoid air cells and visualized portions of the paranasal sinuses are clear. No acute bony findings. IMPRESSION: Negative non-contrast CT head examination for acute finding. No significant change from August 07. MRI Brain: FINDINGS: The anterior cerebral, middle cerebral, posterior cerebral, distal internal carotid and basilar arteries do not demonstrate a significant stenosis. 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 IMPRESSION: No significant abnormality displayed Echocardiogram: EF 30% LEFT VENTRICULAR WALL MOTION: SEVERE GLOBAL HYPOKINESIS. DOPPLER/COLOR FLOW: MILD TRICUSPID REGURGITATION NORMAL RIGHT VENTRICULAR SYSTOLIC PRESSURE. COMMENTS: SEVERE GLOBAL HYPOKINESIS. EJECTION FRACTION 30-35%. LEFT ATRIAL ENLARGEMENT. MITRAL ANNULAR CALCIFICATION. MILD TRICUSPID REGURGITATION NORMAL RIGHT VENTRICULAR SYSTOLIC PRESSURE. 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 She is a resident from custodial. Patient presented with altered mental status. Patient was initially found to have low blood sugars. Patient was further evaluated in the emergency room. CT scan showed no acute changes. Patient had elevated lactic acid and abnormal renal function. Infectious cause was suspected. Chest x-ray showed volume overload. Patient was admitted for further evaluation. Hospital Course: Patient present acute metabolic encephalopathy complicated with hypoglycemia, bacteremia with positive blood culture of Staph epidermidis and acute on chronic systolic CHF. Patient was treated in the course of her stay. Patient was evaluated by neurology. No indication of CVA noted. CHF improved. Echocardiogram shows ejection fraction around 30%. At discharge patient will continue with a 1500 cc per day fluid restriction and low-salt diet. At discharge will continue with Lasix 40 mg 1 pill twice daily along with potassium supplementation. Recommend to recheck lab-BMP in 1 week to monitor her progress. Recommend to recheck chest x-ray in 2-4 weeks to monitor her CHF. Patient will continue with oxygen to maintain sats above 93%. Concerning her bacteremia patient will continue with IV vancomycin. Patient currently on 2 g IV every 36 hr. She is to continue for 1 more week. Recommend to monitor BMP and vancomycin levels per pharmacy. At least twice per week. Case discussed at length with son who has medical power of managing attorney. Patient full code at this time. Patient would benefit with palliative care and possible hospice in the future. Son is to consider this in the near future. Patient will be discharged to the custodial. Recheck blood cultures will be obtained prior to discharge. Please note PICC line is in place. This can be discontinued after treatment of vancomycin. Will need to make sure blood cultures negative. Patient with diabetes mellitus type 2 insulin-dependent. Patient presented with hypoglycemia. Will recommend not to be too strict on diabetic control. Will decrease Lantus to 10 units daily. Recommend blood sugar less than 140 fasting and less than 200 after meals. custodial physician can further address and monitor. Recommend to monitor for hypoglycemia. Patient will continue with mechanical diet. Patient with hypothyroidism. At discharge will continue with Synthroid 125 mcg daily. Patient with GERD. At discharge will continue with Protonix 20 mg 1 pill twice daily. Patient with CAD and chronic atrial fibrillation on chronic anti coagulation therapy. At discharge will continue with digoxin 125 mcg daily and Xarelto 20 mg daily. Patient with hyperlipidemia. At discharge will continue with lovastatin 60 mg at night. Patient with acute on chronic anemia likely iron deficiency. Patient received 1 unit of blood during her stay. Patient will continue with iron supplementation twice daily. Recommend to recheck CBC in 2-4 weeks to monitor progress. Patient likely with underlying dementia. This can be further evaluated by a neurologist in outpatient. CT head and MRI of brain unremarkable at this time. Patient may continue with thymine 100 mg daily. Patient is mainly bed-bound. Will continue with physical therapy as previous. Vital Signs/Physical Exam: Temp Pulse Resp BP Pulse Ox 98.0 F 89 18 112/53 L 98 08/17/19 08:00 08/17/19 09:21 08/17/19 08:00 08/17/19 09:21 08/17/19 08:00 General: Alert, In no apparent distress HEENT: Atraumatic Neck: Supple Respiratory: Clear to auscultation bilaterally, Normal air movement Cardiovascular: Irregular heart rate/rhythm (AFib rate controlled) Gastrointestinal: Normal bowel sounds Musculoskeletal: No tenderness, No warmth Integumentary: Tenderness/swelling (Mild nonpitting edema to the lower extremities bilateral) Neurological: Normal speech, Other (Patient is bedbound), Dementia Laboratory Data at Discharge: WBC 7.5 K/uL (4.3-10.9) 08/17/19 04:20 Hgb 8.4 g/dL (12.0-15.0) L 08/17/19 04:20 Hct 28.3 % (36.0-45.0) L 08/17/19 04:20 Plt Count 237 K/uL (152-406) 08/17/19 04:20 PT 14.8 SECONDS (9.5-12.5) H 08/07/19 05:55 INR 1.27 08/07/19 05:55 APTT 31.4 SECONDS (24.3-36.9) 08/07/19 05:55 Sodium 141 mmol/L (136-145) 08/17/19 04:20 Potassium 4.1 mmol/L (3.5-5.1) 08/17/19 04:20 BUN 22 mg/dL (7-18) H 08/17/19 04:20 Creatinine 1.05 mg/dL (0.55-1.3) 08/17/19 04:20 Glucose 230 mg/dL (74-106) H 08/17/19 04:20 Magnesium 2.2 mg/dL (1.8-2.4) 08/17/19 04:20 Total Bilirubin 0.5 mg/dL (0.2-1.0) 08/16/19 15:35 AST 17 U/L (15-37) 08/16/19 15:35 ALT 16 U/L (12-78) 08/16/19 15:35 Alkaline Phosphatase 58 U/L (45-117) 08/16/19 15:35 Triglycerides 66 mg/dL (<150) 08/08/19 04:32 Cholesterol 77 mg/dL (<200) 08/08/19 04:32 HDL Cholesterol 40 mg/dL (40-60) 08/08/19 04:32 Cholesterol/HDL Ratio 1.93 08/08/19 04:32 Home Medications: Calcium Carb/Vit D3/Minerals [Caltrate Plus Tablet] 1 each PO BIDWM 04/04/12 Digoxin [Digox] 125 mcg PO DAILY 04/04/12 Levothyroxine [Synthroid*] 125 mcg PO ACB 04/04/12 Lovastatin 60 mg PO BEDTIME 04/04/12 Ferrous Sulfate [Ferrous Sulfate*] 325 mg PO BID 08/07/19 Insulin Lispro [Humalog] See Protocol SQ ACHS 08/07/19 Pantoprazole Sodium [Protonix] 20 mg PO BID 08/07/19 Rivaroxaban [Xarelto*] 20 mg PO DAILY 08/07/19 Furosemide [Lasix] 40 mg PO BIDL #60 tab 08/17/19 Insulin Glargine Human [Lantus*] 10 unit SQ DAILY #1 bottle 08/17/19 Potassium Oral Tab [Klor-Con 10 mEq Tab] 10 meq PO BID #60 tab 08/17/19 Thiamine HCl [Vitamin B-1] 100 mg PO DAILY #30 tablet 08/17/19 New Medications: Furosemide [Lasix] 40 mg PO BIDL #60 tab Insulin Glargine Human [Lantus*] 10 unit SQ DAILY #1 bottle Potassium Oral Tab [Klor-Con 10 mEq Tab] 10 meq PO BID #60 tab Thiamine HCl [Vitamin B-1] 100 mg PO DAILY #30 tablet Patient Discharge Instructions: 1. Return to custodial. 2. Patient present acute metabolic encephalopathy complicated with hypoglycemia, bacteremia with positive blood culture of Staph epidermidis and acute on chronic systolic CHF. Patient was treated in the course of her stay. Patient was evaluated by neurology. No indication of CVA noted. CHF improved. Echocardiogram shows ejection fraction around 30%. At discharge patient will continue with a 1500 cc per day fluid restriction and low-salt diet. At discharge will continue with Lasix 40 mg 1 pill twice daily along with potassium supplementation. Recommend to recheck lab-BMP in 1 week to monitor her progress. Recommend to recheck chest x-ray in 2-4 weeks to monitor her CHF. Patient will continue with oxygen to maintain sats above 93%. Concerning her bacteremia patient will continue with IV vancomycin. Patient currently on 2 g IV every 36 hr. She is to continue for 1 more week. Recommend to monitor BMP and vancomycin levels per pharmacy. At least twice per week. Case discussed at length with son who has medical power of managing attorney. Patient full code at this time. Patient would benefit with palliative care and possible hospice in the future. Son is to consider this in the near future. Patient will be discharged to the custodial. Recheck blood cultures will be obtained prior to discharge. Please note PICC line is in place. This can be discontinued after treatment of vancomycin. Will need to make sure blood cultures negative. 3. Patient with diabetes mellitus type 2 insulin- dependent. Patient presented with hypoglycemia. Will recommend not to be too strict on diabetic control. Will decrease Lantus to 10 units daily. Recommend blood sugar less than 140 fasting and less than 200 after meals. custodial physician can further address and monitor. Recommend to monitor for hypoglycemia. Patient will continue with mechanical diet. 4. Patient with hypothyroidism. At discharge will continue with Synthroid 125 mcg daily. 5. Patient with GERD. At discharge will continue with Protonix 20 mg 1 pill twice daily. 6. Patient with CAD and chronic atrial fibrillation on chronic anti coagulation therapy. At discharge will continue with digoxin 125 mcg daily and Xarelto 20 mg daily. 7. Patient with hyperlipidemia. At discharge will continue with lovastatin 60 mg at night. 8. Patient with acute on chronic anemia likely iron deficiency. Patient received 1 unit of blood during her stay. Patient will continue with iron supplementation twice daily. Recommend to recheck CBC in 2-4 weeks to monitor progress. 9. Patient likely with underlying dementia. This can be further evaluated by a neurologist in outpatient. CT head and MRI of brain unremarkable at this time. Patient may continue with thymine 100 mg daily. 10. Patient is mainly bed-bound. Will continue with physical therapy as previous. Diet: Round mechanical Activity: Bedrest Time spent managing pt's care (in minutes): 55
[2019-08-17 12:26] VITALS: O2SAT 98
[2019-08-17 15:02] VITALS: BP 111/56; TEMP 98.2
--- NOTE | 2019-08-18 14:23 | EKG ---
Test Date: 2019-08-16 Test Time: 18:17:39 Cat Tender: ELSIE MEASUREMENT RESULTS: Intervals: Rate: 130 ID: QRSD: [id number] QT: 260 QTc: 382 [place]: P: ID: QRS: [id number] T: 134 INTERPRETIVE STATEMENTS: Atrial fibrillation with rapid ventricular response Left axis deviation Low voltage QRS Cannot rule out Anteroseptal infarct, age undetermined Abnormal ECG Compared to ECG 08/07/2019 06:11:55 Low QRS voltage now present Myocardial infarct finding still present Electronically Signed On 08-18-19 14:19:34 MANAGER [employer] by Abdirizak Moreno
== END 2019-08-17 14:20 | DRG 871 ==
LOC: ER 05:35 → ERHOLD 08:36 → 3RD-ICU 11:46 → 2ND 08-11 12:10
PROVIDERS: ADMIT Family Medicine; ATTEND Family Medicine
PROC: 0BH17EZ Insertion of Endotracheal Airway into Trachea, Via Natural or Artificial Opening (ICD-10-PCS; principal; 2019-08-07)
PROC: 02HV33Z Insertion of Infusion Device into Superior Vena Cava, Percutaneous Approach (ICD-10-PCS; 2019-08-14)
DX: A41.1 Sepsis due to other specified staphylococcus (principal); J96.02 Acute respiratory failure with hypercapnia; J96.01 Acute respiratory failure with hypoxia; G93.41 Metabolic encephalopathy; I50.23 Acute on chronic systolic (congestive) heart failure; Z68.41 Body mass index [BMI] 40.0-44.9, adult; R04.2 Hemoptysis; D62 Acute posthemorrhagic anemia; I48.20 Chronic atrial fibrillation, unspecified; E11.9 Type 2 diabetes mellitus without complications; I11.0 Hypertensive heart disease with heart failure; E03.9 Hypothyroidism, unspecified; K21.9 Gastro-esophageal reflux disease without esophagitis; I25.10 Atherosclerotic heart disease of native coronary artery without angina pectoris; E11.649 Type 2 diabetes mellitus with hypoglycemia without coma; D50.9 Iron deficiency anemia, unspecified; I48.0 Paroxysmal atrial fibrillation; E78.2 Mixed hyperlipidemia; E66.01 Morbid (severe) obesity due to excess calories; F32.9 Major depressive disorder, single episode, unspecified; E11.65 Type 2 diabetes mellitus with hyperglycemia; J44.9 Chronic obstructive pulmonary disease, unspecified; M19.90 Unspecified osteoarthritis, unspecified site; I25.2 Old myocardial infarction; Z79.01 Long term (current) use of anticoagulants
CPT/HCPCS: 31500; 36415; 51702; 70450; 70544; 70549; 70553; 71045; 71250; 74176; 80048; 80053; 80061; 80076; 80162; 80202; 81003; 81015; 82274; 82533; 82728; 82805; 82947; 83540; 83605; 83735; 83880; 84132; 84145; 84443; 84466; 84484; 85014; 85018; 85025; 85610; 85730; 86850; 86900; 86901; 87040; 87077; 87086; 87088; 87186; 87205; 92610; 93005; 93306; 94002; 94003; 94640; 96365; 96366; 96367; 96368; 96375; 97110; 97161; 97530; 99291; 99292; A9577; J1630; J1720; J1940; J2250; J2543; J2704; J2920; J3010; J3411; J7030; J7040; J7042; J7799; P9016